=== PATIENT | male | born 1945 | race Caucasian/White ===

== ENCOUNTER 2020-09-23 11:03 | Inpatient (IN) | payer MEDICARE, OTHER ==
[~2020-09-23] VITALS: Ht 167.6 cm; Wt 89.3 kg
[~2020-09-23 11:03] MED LIST: Augmentin PO; CINNAMON; CINNAMON PO; FISH1000 PO; HCTZ25TA PO; INSUH10VL INJ; INSULANT SC; LOPR50TA PO; LOSA50TA20 PO; METF1000 PO; OXYC1TAB23 PO; SIMV20TA2 PO
--- NOTE | 2020-09-23 11:30 | REP ---
INDICATION: CHEST PAIN. COMPARISON: 09/12/2010. TECHNIQUE: SINGLE PORTABLE AP VIEW OF THE CHEST WAS PERFORMED. FINDINGS: There are mild bibasilar fibro atelectatic changes without evidence of acute infiltrate. The heart is upper limits of normal in size. The mediastinal silhouette is unremarkable and unchanged. IMPRESSION: NO ACUTE PULMONARY DISEASE. <Electronically signed by Riccardo Bone > 09/23/20 1127
[2020-09-23 11:51] LABS: BASO # 0.1 10^3/uL (0.0-0.2); BASO % 0.5 % (0.0-1.0); EOS # 0.7 10^3/uL (0.0-0.5); EOS % 7.6 % (0.0-3.0); HEMATOCRIT 45.9 % (42.0-52.0); HEMOGLOBIN 14.9 g/dl (13.5-17.5); LYMPH # 1.1 10^3/uL (1.5-5.0); LYMPH % 11.8 % (24.0-44.0); MEAN CORPUSCULAR HEMOGLOBIN 29.7 pg (27.0-33.0); MEAN CORPUSCULAR HGB CONC 32.5 g/dl (32.0-36.5); MEAN CORPUSCULAR VOLUME 91.6 fl (80.0-96.0); MONO # 0.8 10^3/uL (0.0-0.8); MONO % 8.2 % (2.0-8.0); NEUTROPHILS # 6.8 10^3/uL (1.5-8.5); NEUTROPHILS % 71.6 % (36.0-66.0); PLATELET COUNT, AUTOMATED 282 10^3/uL (150-450); RED BLOOD COUNT 5.01 10^6/uL (4.30-6.10); WHITE BLOOD COUNT 9.4 10^3/uL (4.0-10.0)
[2020-09-23 12:00] LABS: INR 0.95; PROTHROMBIN TIME 12.9 SECONDS (12.5-14.3)
[2020-09-23 12:01] LABS: PARTIAL THROMBOPLASTIN TIME 28.3 SECONDS (24.2-38.5)
[2020-09-23 12:22] LABS: ALBUMIN 3.7 GM/DL (3.2-5.2); ALT/SGPT 31 U/L (12-78); BILIRUBIN,DIRECT 0.2 MG/DL (0.0-0.2); BILIRUBIN,TOTAL 0.6 MG/DL (0.2-1.0); BLOOD UREA NITROGEN 14 MG/DL (7-18); CALCIUM LEVEL 9.2 MG/DL (8.8-10.2); CARBON DIOXIDE LEVEL 30 MEQ/L (21-32); CHLORIDE LEVEL 103 MEQ/L (98-107); CK-MB VALUE MASS 1.1 NG/ML (<3.6); CPK CREATINE PHOSPHOKINASE 82 U/L (39-308); CREATININE FOR GFR 1.16 MG/DL (0.70-1.30); FREE T4 1.11 NG/DL (0.76-1.46); GLOMERULAR FILTRATION RATE > 60.0 (>42); GLUCOSE, FASTING 134 MG/DL (70-100); LIPASE 67 U/L (73-393); MB/CK RELATIVE INDEX 1.34 (< OR =4); POTASSIUM SERUM 4.1 MEQ/L (3.5-5.1); SODIUM LEVEL 137 MEQ/L (136-145); TOTAL PROTEIN 7.3 GM/DL (6.4-8.2); TROPONIN I 0.14 NG/ML (< 0.10)
[2020-09-23] MEDS ORDERED: ASPIRIN 325 MG TAB PO ONE (12:35)
[2020-09-23 13:32] LABS: CK-MB VALUE MASS 1.2 NG/ML (<3.6); MB/CK RELATIVE INDEX 1.52 (< OR =4); TROPONIN I 0.15 NG/ML (< 0.10)
[2020-09-23 13:35] LABS: RSV AMPLIFICATION NEGATIVE (NEGATIVE)
[2020-09-23] MEDS ORDERED: GLUCAGON INJ 1MG VIAL SC PRN (14:45)
[2020-09-23] MEDS ORDERED: DEXTROSE 50% 50 ML SYRINGE IV PRN (14:45)
[2020-09-23] MEDS ORDERED: GLUCOSE 4GM CHEW TABLET PO PRN (14:45)
[2020-09-23] MEDS ORDERED: ACETAMINOPHEN TAB 650MG DOSE (2X325MG) PO PRN (14:45)
--- NOTE | 2020-09-23 15:06 | HPEPDOC ---
General Date of Admission 09/23/20 Date of Service: Sep 23, 2020 Chief Complaint The patient is a 75-year-old male admitted with a reason for visit of Chest Pain. Source: Patient Exam Limitations: No limitations History of Present Illness Patient is 75 years old male with past history of hypertension, history of prostate cancer status post prostatectomy, hyperlipidemia, type 2 diabetes presenting to the hospital with chest pain. Patient stated that in the morning around 5 aM he woke up with substernal chest pain, 4 out of 10, radiated to the left shoulder and arm, lasted 1 hour and then completely resolved. Patient stated that he never had such symptoms before. Patient denied fever, chills, nausea, vomiting diarrhea or dysuria. In ER patient was found to have no acute ischemic changes on the EKG, first troponin 0.14, second troponin 0.15. Patient does not have leukocytosis, hemoglobin normal. Chest x-ray negative for acute pulmonary diseases Home Medications Scheduled Cinnamon Bark (Cinnamon) 500 Mg Capsule, 500 MG PO DAILY, (Reported) Cyanocobalamin (Cyanocobalamin Injection) 1,000 Mcg/1 Ml Vial, 500 MCG IM QMONTH, (Reported) Fluticasone Propionate (Flonase Allergy Relief) 9.9 Ml [place].susp, 2 SPRAYS NARES DAILY, (Reported) Insulin Aspart (Novolog Flexpen) 100 Unit/1 Ml Insuln.pen, 1 UNITS SC AC, (Reported) PER SLIDING SCALE Insulin Glargine,Hum.rec.anlog (Lantus Solostar) 100 Unit/1 Ml Insuln.pen, 45 UNITS SC QHS, (Reported) Insulin Glargine,Hum.rec.anlog (Lantus Solostar) 100 Unit/1 Ml Insuln.pen, 20 UNITS SC QAM, (Reported) Krill/Om-3/Dha/Epa/Phospho/Ast (Krill Oil 1,000 mg Softgel) 1 Each Capsule, 1 CAP PO DAILY, (Reported) Latanoprost (Xalatan) 0.005% 2.5ML Drops, 1 DROP OU QHS, (Reported) Losartan Potassium (Losartan Potassium) 50 Mg Tablet, 50 MG PO BID, (Reported) Metformin HCl (Metformin HCl) 1,000 Mg Tablet, 1,000 MG PO BIDWM, (Reported) Multivitamins (Thera M Plus Tablet) 1 Each Tablet, 1 TAB PO DAILY, (Reported) Pioglitazone HCl (Pioglitazone HCl) 30 Mg Tablet, 15 MG PO DAILY, (Reported) Simvastatin (Simvastatin) 40 Mg Tablet, 20 MG PO QHS, (Reported) Triamterene/Hydrochlorothiazid (Triamterene-Hctz 37.5-25 mg Tb) 1 Each Tablet, 1.5 TAB PO DAILY, (Reported) Trospium Chloride (Trospium Chloride) 20 Mg Tablet, 20 MG PO BID, (Reported) Scheduled PRN Carboxymethylcellulose Sodium (Refresh Tears) 15 Ml Drops, 1 DROP OU BID PRN for DRY EYES, (Reported) Allergies Coded Allergies: No Known Allergies (Unverified , 09/26/12) Past Medical History Medical History hypertension, history of prostate cancer status post prostatectomy, hyperlipidemia, type 2 diabetes, exposed to agent orange Surgical History Radical prostatectomy due to prostate cancer Family History 2 brothers has coronary artery diseases, mother diabetes, father Alzheimer Social History * Smoker: former Smoker Alcohol: Denies Drugs: denies A-FIB/CHADSVASC A-FIB History Current/History of A-Fib/PAF?: No Current PO Anticoag Therapy: No Review of Systems Constitutional: Denies: Chills, Fever Eyes: Denies: Pain ENT: Denies: Head Aches Skin: Denies: Rash, Lesions Pulmonary: Denies: Dyspnea Cardiovascular: Reports: Chest Pain; Denies: Palpitations Gastrointestinal: Denies: Nausea, Vomiting Genitourinary: Denies: Dysuria Hematologic: Denies: Bruising Endocrine: Denies: Polydipsia Musculoskeletal: Denies: Neck Pain Neurological: Denies: Weakness Psych: Reports: Mood Normal Physical Examination General Exam: Positive: Alert, Cooperative Eye Exam: Positive: PERRLA ENT Exam: Positive: Atraumatic Neck Exam: Negative: JVD Chest Exam: Positive: Clear to auscultation Heart Exam: Positive: Rate Normal Telemetry: Positive: No significant arrhythmia Abdomen Exam: Positive: Normal bowel sounds Extremity Exam: Negative: Clubbing Skin Exam: Positive: Nl turgor and temperature Neuro Exam: Positive: Normal Gait Psych Exam: Positive: Mental status NL Vital Signs Vital Signs Date Time Temp Pulse Resp B/P (MAP) Pulse Ox O2 Delivery O2 Flow Rate FiO2 09/23/20 13:48 84 92 09/23/20 13:45 18 193/77 (115) Room Air 09/23/20 11:04 98.1 Laboratory Data Labs 24H Laboratory Tests 2 09/23/20 11:31: Immature Granulocyte % (Auto) 0.3, Neutrophils (%) (Auto) 71.6H, Lymphocytes (%) (Auto) 11.8L, Monocytes (%) (Auto) 8.2H, Eosinophils (%) (Auto) 7.6H, Basophils (%) (Auto) 0.5, Neutrophils # (Auto) 6.8, Lymphocytes # (Auto) 1.1L, Monocytes # (Auto) 0.8, Eosinophils # (Auto) 0.7H, Basophils # (Auto) 0.1, Nucleated Red Blood Cells % (auto) 0.0, Prothrombin Time 12.9, Prothromb Time International Ratio 0.95, Activated Partial Thromboplast Time 28.3, Anion Gap 4L, Glomerular Filtration Rate > 60.0, Calcium Level 9.2, Total Bilirubin 0.6, Direct Bilirubin 0.2, Aspartate Amino Transf (AST/SGOT) 19, Alanine Aminotransferase (ALT/SGPT) 31, Alkaline Phosphatase 97, Total Creatine Kinase 82, Creatine Kinase MB 1.1, Creatine Kinase MB Relative Index 1.34, Troponin I 0.14H, Total Protein 7.3, Albumin 3.7, Albumin/Globulin Ratio 1.0, Lipase 67L, Thyroid Stimulating Hormone (TSH) 1.110, Free Thyroxine 1.11 09/23/20 12:45: Total Creatine Kinase 79, Creatine Kinase MB 1.2, Creatine Kinase MB Relative Index 1.52, Troponin I 0.15H, Coronavirus (COVID-19)(PCR) NEGATIVE, Influenza Type A (RT-PCR) NEGATIVE, Influenza Type B (RT-PCR) NEGATIVE, Respiratory Syncytial Virus (PCR) NEGATIVE CBC/BMP Laboratory Tests 09/23/20 11:31 Assessment/Plan Patient is 75 years old male with past history of hypertension, history of prostate cancer status post prostatectomy, hyperlipidemia, type 2 diabetes presenting to the hospital with chest pain. Patient stated that in the morning around 5 aM he woke up with substernal chest pain, 4 out of 10, radiated to the left shoulder and arm, lasted 1 hour and then completely resolved. Patient stated that he never had such symptoms before. Patient denied fever, chills, nausea, vomiting diarrhea or dysuria. In ER patient was found to have no acute ischemic changes on the EKG, first troponin 0.14, second troponin 0.15. Patient does not have leukocytosis, hemoglobin normal. Chest x-ray negative for acute pulmonary diseases Problems (1) Chest pain Status: Acute Problem Text: Differential diagnosis includes demand ischemia, acute coronary syndrome, NSTEMI Patient has multiple risk factors including hypertension, hyperlipidemia, overweight, history of smoking Chest pain resolved when I saw the patient PURVI score 3 points I talked doctor Dr. Rodriguez, he recommended to continue monitoring troponin, echo and start full dose of anticoagulation I started the metoprolol 25 mg twice a day, continue statin, aspirin (2) Hypertension Status: Acute Problem Text: Hypertensive urgency with systolic blood pressure of 195 Patient is symptom management Norvasc 10 mg once, started metoprolol 25 mg twice a day (3) Hyperlipidemia Status: Chronic Problem Text: Continue statin (4) Type 2 diabetes mellitus Status: Chronic Problem Text: Insulin sliding scale Detemir twice a day Diabetes diet Plan / VTE VTE Prophylaxis Ordered?: Yes PORTILLO MONIQUE DO Sep 23, 2020 15:06
[2020-09-23] MEDS ORDERED: CYAN1000VL IM (15:09)
[2020-09-23] MEDS ORDERED: TROS20TA3 PO (15:09)
[2020-09-23] MEDS ORDERED: FLON1SPR NARES (15:09)
[2020-09-23] MEDS ORDERED: REFR0.5D8 OU (15:09)
[2020-09-23] MEDS ORDERED: METF-877 PO (15:09)
[2020-09-23] MEDS ORDERED: KRIL1CAP7 PO (15:09)
[2020-09-23] MEDS ORDERED: TRIA37.5 PO (15:09)
[2020-09-23] MEDS ORDERED: LANTINJ4 SC ×2 (15:09)
[2020-09-23] MEDS ORDERED: XALA0.007 OU (15:09)
[2020-09-23] MEDS ORDERED: VITMTA PO (15:09)
[2020-09-23] MEDS ORDERED: PIOG1TAB37 PO (15:09)
[2020-09-23] MEDS ORDERED: LOSA50TA88 PO (15:09)
[2020-09-23] MEDS ORDERED: SIMV40TA20 PO (15:09)
[2020-09-23] MEDS ORDERED: NOVOINJ3 SC (15:09)
[2020-09-23] MEDS ORDERED: CINN500C15 PO (15:09)
[2020-09-23] MEDS ORDERED: METOPROLOL TART 25 MG TABLET PO ONE (15:15)
[2020-09-23] MEDS: PANTOPRAZOLE 40MG TAB (PROTONIX) PO SCH (16:00)
[2020-09-23] MEDS: HumaLOG INSULIN (NovoLOG) PER UNIT SC SCH (17:30)
[2020-09-23 17:35] VITALS: BP 152/79
[2020-09-23] MEDS ORDERED: SIMVASTATIN 20 MG TAB PO SCH (21:00)
[2020-09-23] MEDS ORDERED: HumaLOG INSULIN (NovoLOG) PER UNIT SC SCH (21:00)
[2020-09-23] MEDS ORDERED: LATANOPROST 0.005% OPHTH SOLN 2.5 ML OU SCH (21:00)
[2020-09-23] MEDS: ENOXAPARIN 100MG/1ML SYRINGE (J1650 PER 10MG) SC SCH (21:13)
[2020-09-23] MEDS: LEVEMIR (INSULIN DETEMIR) 1 UNITS/0.01ML SC SCH (21:14)
[2020-09-23] MEDS: METOPROLOL TART 25 MG TABLET PO SCH (21:14)
[2020-09-23] MEDS: LOSARTAN 50MG TABLET PO SCH (21:15)
[2020-09-23 22:00] VITALS: BP 136/65
--- NOTE | 2020-09-24 02:38 | ECGEPIP ---
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
[2020-09-24 06:00] VITALS: BP 154/81
[2020-09-24 06:51] LABS: HEMOGLOBIN 14.1 g/dl (13.5-17.5); MEAN CORPUSCULAR HEMOGLOBIN 29.1 pg (27.0-33.0); MEAN CORPUSCULAR VOLUME 90.7 fl (80.0-96.0); PLATELET COUNT, AUTOMATED 258 10^3/uL (150-450); RED BLOOD COUNT 4.85 10^6/uL (4.30-6.10); WHITE BLOOD COUNT 8.8 10^3/uL (4.0-10.0)
[2020-09-24 07:30] LABS: ALBUMIN 3.4 GM/DL (3.2-5.2); ALT/SGPT 28 U/L (12-78); BILIRUBIN,TOTAL 0.9 MG/DL (0.2-1.0); BLOOD UREA NITROGEN 14 MG/DL (7-18); CALCIUM LEVEL 9.6 MG/DL (8.8-10.2); CARBON DIOXIDE LEVEL 32 MEQ/L (21-32); CHLORIDE LEVEL 102 MEQ/L (98-107); CHOLESTEROL LEVEL 137 MG/DL (<200); CHOLESTEROL RISK RATIO 3.702 (<5); CREATININE FOR GFR 1.11 MG/DL (0.70-1.30); GLOMERULAR FILTRATION RATE > 60.0 (>42); GLUCOSE, FASTING 137 MG/DL (70-100); HDL CHOLESTEROL 37 MG/DL (>40); LDL CHOLESTEROL 59 MG/DL (<100); MAGNESIUM LEVEL 1.9 MG/DL (1.8-2.4); NON-HDL-C 100 MG/DL; POTASSIUM SERUM 3.8 MEQ/L (3.5-5.1); SODIUM LEVEL 138 MEQ/L (136-145); TOTAL PROTEIN 6.7 GM/DL (6.4-8.2); TRIGLYCERIDES LEVEL 205 MG/DL (<150)
[2020-09-24] MEDS: ENOXAPARIN 100MG/1ML SYRINGE (J1650 PER 10MG) SC SCH (08:44)
[2020-09-24] MEDS: LEVEMIR (INSULIN DETEMIR) 1 UNITS/0.01ML SC SCH (08:45)
[2020-09-24] MEDS: HumaLOG INSULIN (NovoLOG) PER UNIT SC SCH (08:45)
[2020-09-24 08:46] VITALS: BP 159/74
[2020-09-24] MEDS: LOSARTAN 50MG TABLET PO SCH (08:46)
[2020-09-24] MEDS: METOPROLOL TART 25 MG TABLET PO SCH (08:46)
[2020-09-24] MEDS: PANTOPRAZOLE 40MG TAB (PROTONIX) PO SCH (08:46)
[2020-09-24] MEDS ORDERED: METO1TAB87 PO (08:59)
[2020-09-24] MEDS ORDERED: PANT40TA29 PO (08:59)
[2020-09-24] MEDS ORDERED: ASPI81CH8 PO (08:59)
[2020-09-24] MEDS ORDERED: ENOXAPARIN 40MG/0.4ML SYRINGE (J1650 PER 10MG) SC SCH (09:00)
[2020-09-24] MEDS ORDERED: ASPIRIN 81 MG CHEW TABLET PO SCH (09:00)
--- NOTE | 2020-09-24 11:31 | IPN ---
PROGRESS NOTE DATE: 09/23/2020 SUBJECTIVE: Mr. Morrow was seen and examined this morning. Overnight he has not reported any further chest pain. His elevated troponins have leveled out around 0.18. On further questioning this morning, the patient's story and symptomatology is fairly consistent with ACS. The patient has stated this morning that he would be okay with undergoing heart catheterization as well as he would consider open heart surgery if it was indicated. A decision was made that the patient should be transferred to [facility] cardiology for heart catheterization. OBJECTIVE: Vital signs: Temperature is 98.0, pulse 78, respiratory rate 20, blood pressure 154/81, pulse oximetry 96% on room air. General: The patient is awake, alert and oriented. He did not appear in acute distress. He is lying in bed comfortably. HEENT: Atraumatic. Normocephalic. Eyes: Nonicteric. Trachea is midline. Mucous membranes are pink and moist. Cardiovascular: There are somewhat distant hearts. There is normal S1, S2. Regular rate and rhythm. No clicks, rubs or murmurs are auscultated. There is no JVD. Pulmonary: There are clear vesicular breath sounds bilaterally, good respiratory effort. No wheezes, rhonchi or rales. Abdomen: Soft, nondistended, nontender, normoactive bowel sounds throughout. Extremities: No edema. Full and equal pulses bilaterally of upper and lower extremities. Neurologic: No focal neurological deficits. Psychiatric: Mood and affect appear appropriate. LABORATORY DATA: Hematology: White blood cell 8.8, hemoglobin 14.1, hematocrit 44, platelet count 258. Chemistries: Sodium 138, potassium 3.8, chloride 102, CO2 32, creatinine 1.11. Random glucose 137, calcium 9.6, magnesium 1.9, total bilirubin 0.9. AST 23, ALT 28, alkaline phosphatase 86. Troponin on admission 0.15, repeat 0.18. ASSESSMENT AND PLAN: Mr. Morrow is a 75-year-old male with a past medical history significant for longstanding diabetes mellitus, type 2, uncontrolled hypertension and history of smoking who presented to the emergency department with an episode of chest pain/pressure that lasted approximately 15 minutes. The patient had indicated that previous to this, he has had on and off chest pressure typically with exertion. The patient was admitted to hospitalist service. Cardiology is consulted for evaluation of the elevated troponin. 1. Chest pain/possible ACS. The patient had presented with chest pain/pressure that lasted approximately 15 minutes. It was associated with some diaphoresis and some shortness of breath. The patient had indicated that this has been going on for approximately two months on and off. He does a history that certainly raised a risk for acute coronary syndrome including diabetes mellitus type 2 which is longstanding. His most recent A1c according to him was 7.1. Additionally he has uncontrolled hypertension. He is currently on Losartan and Dyazide outpatient. However, he states that his blood pressure typically runs between the 160s and 170s on these medications. He also had a history of hyperlipidemia and is a former smoker. Given the patient's symptomatology and medical history, his PURVI risk score is certainly elevated at 4. He would benefit from transfer to [facility] for cardiac catheterization. At this time, we would recommend continuing his aspirin. He is currently on Lovenox 90 mg every 12 hours. We would recommend continuing this as well. [facility] has been contacted and they are going to accept the patient. Dr. Mcdonough is the accepting physician/interventionalist. At this time, we will hold off on getting any Plavix. He will be Plavix loaded when he arrives at [facility]. Otherwise, continue his current medications including metoprolol 25 mg b.i.d. 2. Hypertension. The patient has uncontrolled hypertension. He states he has been on Cozaar and Dyazide. However, his systolic blood pressure is running approximately in the 170s. Yesterday in the ER, his systolic blood pressure was upwards of 200. We have added metoprolol 25 mg b.i.d. yesterday. We will start Norvasc daily schedule. The patient should follow up with his primary care physician in regards to better blood pressure control with an AHA/ACC guidelines goal of approximately less than 130 or less than 90. 3. Diabetes mellitus type 2. The patient has diabetes mellitus type 2. He takes insulin and pioglitazone. Given possible ACS, he should consider additional medications such as GLP-1 agonist and SGLT2 inhibitors as they have shown decreased mortality and morbidity in diabetics in terms of heart disease. 4. Hyperlipidemia. The patient is currently on simvastatin 20 mg q.h.s. This is moderate intensity statin. He ideally should be increased to a high intensity statin such as atorvastatin and rosuvastatin. RECOMMENDATIONS: At this current time, the patient is recommended to continue his metoprolol 25 mg b.i.d., aspirin and Lovenox. He is going to be transferred to [facility] for cardiac catheterization. He can follow up with cardiology clinic after his catheterization. Regarding his hypertension, he is to continue this previous hypertensive medication including Cozaar and Dyazide. We have added Norvasc as well as Lopressor.
--- NOTE | 2020-09-24 14:23 | CR ---
CARDIOLOGY CONSULTATION DATE: 09/23/2020 REFERRING PHYSICIAN: Rhett Ball DO CONSULTING PHYSICIAN: Stephani Rodriguez MD REASON FOR CONSULTATION: Chest pain with elevated troponin. HISTORY OF PRESENT ILLNESS: Mr. Morrow is a 75-year-old male with a past medical history significant for hypertension, diabetes mellitus type 2, hyperlipidemia and prostate cancer, status post radical prostatectomy who had presented to [facility] emergency department with a complaint of chest pain. The patient states that this morning, he had woken up approximately around 5 a.m. with chest pain that was described as more of a pressure than a pain. He stated that it felt like there was something pushing on his chest. He stated this sensation did radiate to his left shoulder. He had stated that the sensation lasted approximately 15-20 minutes then had resolved. At the time, the patient did note some shortness of breath. He stated the shortness of breath did not last15 minutes, it was more a minute or so. He states that this chest pressure/pain was more significant than he has ever experienced. He does state that he has had on and off symptoms similar to this although less in severity over the past couple months. He stated that normally this is associated with exertion. He states that when he walks, he will often get a pressure feeling in his chest. In the emergency department, the patient was vitally stable though he was fairly hypertensive with a systolic blood pressure of 175 and a diastolic 85. Initial laboratory examination did demonstrate a slightly elevated troponin level of 0.14 and then repeat in an hour was approximately 0.15. The patient was admitted to hospitalist medicine for evaluation and management. Cardiology was consulted for further evaluation of the elevated troponins in light of chest pain and evaluation for possible NSTEMI. PAST MEDICAL HISTORY: 1. Hypertension. 2. Type 2 diabetes mellitus. 3. Hyperlipidemia. 4. History of prostate cancer with status post radical prostatectomy. 5. Exposure ot Agent [place]. SURGICAL HISTORY: 1. Radical prostatectomy. 2. Appendectomy. FAMILY HISTORY: The patient has two brothers, both of which had a history of coronary artery disease and have had open heart surgeries. His mother is alive with diabetes. His father has Alzheimer's disease. SOCIAL HISTORY: The patient lives at home alone. He is independent of ADLs. He is a former smoker. He quit smoking around the year 1999. At the time, he was smoking approximately one pack per day. He does have a history of exposure to Agent [place] as he is a . He denies any current alcohol use. He denies any IV or illicit drug use. REVIEW OF SYSTEMS: Constitutional: The patient denies any fevers, chills. He denies any unintentional weight loss or weight gain. HEENT: The patient denies any headaches. He denies any dysphagia or odynophagia. Pulmonary: The patient denies any current shortness of breath. He states that he had developed shortness of breath and the episode of chest pain early his morning but currently he denies any wheezing. Cardiovascular: The patient admits to chest pain earlier, describes the pressure feeling. He denies any current chest pain. He denies any palpations or feelings of heart racing. Gastrointestinal: The patient denies any nauseam, vomiting, diarrhea or constipation. Genitourinary: The patient denies any dysuria, urinary frequency or urgency. He denies any hematuria. Musculoskeletal: The patient denies any neck pain or back pain. He denies any muscle weakness. Neurologic: The patient denies any weakness. He denies any changes in gait or speech. He denies any change in vision. Hematologic: The patient denies any easy bleeding or bruising. He denies any history of DVT or pulmonary embolism. Endocrine: The patient denies any heat intolerance or cold intolerance. He does admit to history of diabetes mellitus. Psychiatric: The patient denied any history of depression or anxiety. PHYSICAL EXAMINATION: VITAL SIGNS: Temperature 97.8, pulse 88, respiratory rate 18, blood pressure 189/84, pulse oximetry 94% on room air. GENERAL: The patient is awake, alert and oriented. He does not appear in any acute distress. He is lying in a stretcher comfortably. HEENT: Atraumatic, normocephalic. Eyes are nonicteric. Trachea is midline. Mucous membranes are pink and moist. CARDIOVASCULAR: There is a normal S-1, S-2. There is a regular rate and rhythm with no clicks, rubs or murmurs auscultated. There is no JVD present. PULMONARY: He has clear vesicular breath sounds bilaterally. Good respiratory effort. No wheezes, rhonchi or rales are noted. ABDOMEN: Soft, nondistended, nontender, normoactive bowel sounds throughout. EXTREMITIES: No edema in bilateral upper and lower extremities. There is a full equal pulse, bilateral upper and lower extremities. NEUROLOGIC: No focal neurological deficits. PSYCHIATRIC: Mood and affect appear appropriate. INPATIENT CARDIAC MEDICATIONS: 1. Aspirin 81 mg daily p.o. 2. Lopressor 25 mg b.i.d. p.o. 3. Simvastatin 20 mg q.h.s. p.o. 4. Losartan potassium 50 mg b.i.d. p.o. 5. Lovenox 90 mg q.12 hours subcutaneous. LABORATORY DATA: Hematology: White blood cells 9.4, hemoglobin 14.9, hematocrit 45.9, platelet count 282. Chemistries: Sodium 137, potassium 4.1, chloride 103, CO2 30, BUN 14, creatinine 1.16, fasting glucose 134, calcium 9.2, total bilirubin 0.6, direct bilirubin 0.2, AST 19, ALT 31, alkaline phosphatase 97, total creatine kinase 82. Troponin 0.14, repeat at 0.15. IMAGING: Chest x-ray demonstrating no acute pulmonary disease. ASSESSMENT AND PLAN: Mr. Morrow is a 75-year-old male who presented to the [facility] emergency department with a complaint of chest pain/pressure that started about 5 a.m. and lasted approximately 15-20 minutes. The patient had also admitted to several episodes of similar symptomatology over the past few months. In the ER, the patient was found to have no acute ischemic changes on EKG but a elevated troponin of 0.14 and 0.15. The patient was admitted for evaluation and management by hospitalist medicine. Cardiology was consulted for further evaluation. 1. Chest pain with elevated troponins. The patient presented with chest pain and pressure which was described as lasting approximately 15-20 minutes and then subsiding. The patient states that he has had similar symptoms on and off for the past couple months typically associated with exertion. Given his symptomatology and history, it certainly is concerning for ACS. Additionally, there are no EKG changes readily which could suggest an NSTEMI. He certainly has the risk factors with the PURVI score of 4 completing a 20% risk, 14 days of RI. He does have history of diabetes mellitus type 2. His most recent A1c was 7.1 per the patient. At this point in time, the patient is currently being monitored. Additionally he was noted to be fairly hypertensive. This could be secondary to a hypertensive urgency. We will continue to monitor his troponins. The next one is due around 5:45/6 o'clock tonight. An echocardiogram has been ordered by the primary service. Additionally, the patient has been started on Lovenox 90 mg every 12 hours which will be continued for at least three days if this is truly NSTEMI. Additionally, the patient has been started on metoprolol 25 mg b.i.d. He is on simvastatin 20 mg q.h.s. which is a moderate intensity statin, could be changed to atorvastatin 80 mg. Additionally, the patient is on aspirin 81 mg daily p.o. l would recommend continuing this current regimen. We will continue to monitor troponins. If they continue to elevate, may have to consider transfer to [facility] for cardiac catheterization. 2. Hypertension. The patient noted to be fairly hypertensive on presentation, systolic blood pressure 175. On evaluation in the room, it upwards of 200 systolic blood pressure. He is rather asymptomatic. However, this could be a hypertensive urgency. He did receive Norvasc in the ED. He has also been started on metoprolol 25 mg b.i.d. 3. Diabetes mellitus type 2. The patient has diabetes mellitus. This is somewhat well controlled. His hemoglobin A1c is 7.1. His outpatient medications indicate that he is on metformin as well as pioglitazone insulin. The patient should consider speaking with his primary care physician about other potential diabetic medications such as SGLT2 inhibitors and GLP-1 agonist as these have shown mortality benefit in regards to coronary artery disease in diabetics. RECOMMENDATIONS: At this current time, I will recommend continuing to monitor troponins. Echocardiogram has been ordered. Continue with full dose Lovenox at 90 mg q.12 hours subcutaneous. Continue metoprolol 25 mg b.i.d. Continue patient's statin and aspirin.
--- NOTE | 2020-09-25 17:11 | DS.PDOC ---
Discharge Summary General Date of Admission Sep 23, 2020 at 14:41 Date of Discharge 09/24/20 Discharge Summary PROCEDURES PERFORMED DURING STAY: [None]. ADMITTING DIAGNOSES: Chest pain Hypertension Hyperlipidemia Type 2 diabetes mellitus DISCHARGE DIAGNOSES: Chest pain Hypertension Hyperlipidemia Type 2 diabetes mellitus NSTEMI COMPLICATIONS/CHIEF COMPLAINT: Chest Pain, Hypertension. HISTORY OF PRESENT ILLNESS: Patient is 75 years old male with past history of hypertension, history of prostate cancer status post prostatectomy, hyperlipidem ia, type 2 diabetes presenting to the hospital with chest pain. Patient stated that in the morning around 5 aM he woke up with substernal chest pain, 4 out of 10, radiated to the left shoulder and arm, lasted 1 hour and then completely resolved. Patient stated that he never had such symptoms before. Patient denied fever, chills, nausea, vomiting diarrhea or dysuria. In ER patient was found to have no acute ischemic changes on the EKG, first troponin 0.14, second troponin 0.15. Patient does not have leukocytosis, hemoglobin normal. Chest x-ray negative for acute pulmonary diseases HOSPITAL COURSE: During the hospital stay following issues addressed 1. Chest pain/possible ACS. The patient had presented with chest pain/pressure that lasted approximately 15 minutes. It was associated with some diaphoresis and some shortness of breath. The patient had indicated that this has been going on for approximately two months on and off. He does a history that certainly raised a risk for acute coronary syndrome including diabetes mellitus type 2 which is longstanding. His most recent A1c according to him was 7.1. Additionally he has uncontrolled hypertension. He is currently on Losartan and Dyazide outpatient. However, he states that his blood pressure typically runs between the 160s and 170s on these medications. He also had a history of hyperlipidemia and is a former smoker. Given the patient's symptomatology and medical history, his PURVI risk score is certainly elevated at 4. He would benefit from transfer to [facility] for cardiac catheterization. At this time, we would recommend continuing his aspirin. He is currently on Lovenox 90 mg every 12 hours. We would recommend continuing this as well. [facility] has been contacted and they are going to accept the patient. Dr. Mcdonough is the accepting physician/interventionalist. At this time, we will hold off on getting any Plavix. He will be Plavix loaded when he arrives at [facility]. Otherwise, continue his current medications including metoprolol 25 mg b.i.d. 2. Hypertension. The patient has uncontrolled hypertension. He states he has been on Cozaar and Dyazide. However, his systolic blood pressure is running approximately in the 170s. Yesterday in the ER, his systolic blood pressure was upwards of 200. We have added metoprolol 25 mg b.i.d. yesterday. We will start Norvasc daily schedule. The patient should follow up with his primary care physician in regards to better blood pressure control with an AHA/ACC guidelines goal of approximately less than 130 or less than 90. 3. Diabetes mellitus type 2. The patient has diabetes mellitus type 2. He takes insulin and pioglitazone. Given possible ACS, he should consider additional medications such as GLP-1 agonist and SGLT2 inhibitors as they have shown decreased mortality and morbidity in diabetics in terms of heart disease. 4. Hyperlipidemia. The patient is currently on simvastatin 20 mg q.h.s. This is moderate intensity statin. He ideally should be increased to a high intensity statin such as atorvastatin and rosuvastatin. DISCHARGE MEDICATIONS: Please see below. ALLERGIES: Please see below. PHYSICAL EXAMINATION ON DISCHARGE: VITAL SIGNS: Please see below. Vital signs: Temperature is 98.0, pulse 78, respiratory rate 20, blood pressure 154/81, pulse oximetry 96% on room air. General: The patient is awake, alert and oriented. He did not appear in acute distress. He is lying in bed comfortably. HEENT: Atraumatic. Normocephalic. Eyes: Nonicteric. Trachea is midline. Mucous membranes are pink and moist. Cardiovascular: There are somewhat distant hearts. There is normal S1, S2. Regular rate and rhythm. No clicks, rubs or murmurs are auscultated. There is no JVD. Pulmonary: There are clear vesicular breath sounds bilaterally, good respiratory effort. No wheezes, rhonchi or rales. Abdomen: Soft, nondistended, nontender, normoactive bowel sounds throughout. Extremities: No edema. Full and equal pulses bilaterally of upper and lower extremities. Neurologic: No focal neurological deficits. Psychiatric: Mood and affect appear appropriate. LABORATORY DATA: Please see below. IMAGING: See above PROGNOSIS: Fair ACTIVITY: [As tolerated]. DIET: Cardiac DISCHARGE PLAN: Transfer to [facility] DISPOSITION: 70 Xfer Other. ITEMS TO FOLLOWUP ON ON OUTPATIENT: Follow-up with transcriptionist after discharge DISCHARGE CONDITION: [Stable]. TIME SPENT ON DISCHARGE: 40minutes. Vital Signs/I&Os Vital Signs Date Time Temp Pulse Resp B/P (MAP) Pulse Ox O2 Delivery O2 Flow Rate FiO2 09/24/20 08:46 91 159/74 09/24/20 06:00 98.0 20 96 09/23/20 16:45 Room Air I&O- Last 24 Hours up to 6 AM 09/25/20 06:00 Intake Total 240 ml Output Total 400 ml Balance -160 ml Discharge Medications Scheduled Aspirin (Children's Aspirin) 81 Mg Tab.chew, 81 MG PO DAILY Cinnamon Bark (Cinnamon) 500 Mg Capsule, 500 MG PO DAILY, (Reported) Cyanocobalamin (Cyanocobalamin Injection) 1,000 Mcg/1 Ml Vial, 500 MCG IM QMONTH, (Reported) Fluticasone Propionate (Flonase Allergy Relief) 9.9 Ml [place].susp, 2 SPRAYS NARES DAILY, (Reported) Insulin Aspart (Novolog Flexpen) 100 Unit/1 Ml Insuln.pen, 1 UNITS SC AC, (Reported) PER SLIDING SCALE Insulin Glargine,Hum.rec.anlog (Lantus Solostar) 100 Unit/1 Ml Insuln.pen, 45 UNITS SC QHS, (Reported) Insulin Glargine,Hum.rec.anlog (Lantus Solostar) 100 Unit/1 Ml Insuln.pen, 20 UNITS SC QAM, (Reported) Krill/Om-3/Dha/Epa/Phospho/Ast (Krill Oil 1,000 mg Softgel) 1 Each Capsule, 1 CAP PO DAILY, (Reported) Latanoprost (Xalatan) 0.005% 2.5ML Drops, 1 DROP OU QHS, (Reported) Losartan Potassium (Losartan Potassium) 50 Mg Tablet, 50 MG PO BID, (Reported) Metformin HCl (Metformin HCl) 1,000 Mg Tablet, 1,000 MG PO BIDWM, (Reported) Metoprolol Tartrate (Metoprolol Tartrate) 25 Mg Tablet, 25 MG PO BID Multivitamins (Thera M Plus Tablet) 1 Each Tablet, 1 TAB PO DAILY, (Reported) Pantoprazole Sodium (Pantoprazole Sodium) 40 Mg Tablet.dr, 40 MG PO DAILY Pioglitazone HCl (Pioglitazone HCl) 30 Mg Tablet, 15 MG PO DAILY, (Reported) Simvastatin (Simvastatin) 40 Mg Tablet, 20 MG PO QHS, (Reported) Triamterene/Hydrochlorothiazid (Triamterene-Hctz 37.5-25 mg Tb) 1 Each Tablet, 1.5 TAB PO DAILY, (Reported) Trospium Chloride (Trospium Chloride) 20 Mg Tablet, 20 MG PO BID, (Reported) Scheduled PRN Carboxymethylcellulose Sodium (Refresh Tears) 15 Ml Drops, 1 DROP OU BID PRN for DRY EYES, (Reported) Allergies Coded Allergies: No Known Allergies (Unverified , 09/26/12) PORTILLO MONIQUE DO Sep 25, 2020 17:11
== END 2020-09-24 11:28 | disposition short-term general hospital (02) | DRG 282 ==
LOC: M ED 11:03 → M ED INP 14:41 → ENRESERV 15:11 → M MSPAV 17:36
PROVIDERS: ADMIT Internal Medicine; ATTEND Internal Medicine
DX: I21.4 Non-ST elevation (NSTEMI) myocardial infarction (principal); I10 Essential (primary) hypertension; I16.0 Hypertensive urgency; E11.9 Type 2 diabetes mellitus without complications; E78.5 Hyperlipidemia, unspecified; Z85.46 Personal history of malignant neoplasm of prostate; Z79.4 Long term (current) use of insulin; Z79.899 Other long term (current) drug therapy; Z87.891 Personal history of nicotine dependence

== ENCOUNTER → 2022-01-23 | Outpatient (CLI) | payer MEDICARE, OTHER ==
[~2022-01-23] MED LIST changes: +AMLO1TAB24 PO; +ASPI81CH33 PO; +ASPI81CH8 PO; +CINN500C15 PO; +CIPR500S PO; +CYAN1000VL IM; +FLON1SPR NARES; +KRIL1CAP7 PO; +LANTINJ4 SC; +LINE1TAB6 PO; +LOSA50TA28 PO; +METF-877 PO; +METO1TAB87 PO; +METO25TA4 PO; +MIRA1POW3 PO; +NOVOINJ3 SC; +PANT-23 PO; +PANT40TA29 PO; +PIOG1TAB37 PO; +REFR0.5D8 OU; +SIMV40TA20 PO; +TRIA37.5 PO; +TROS20TA3 PO; +VITMTA PO; +XALA0.007 OU; +ZYVO1TAB PO
[2022-01-23 15:44] LABS: HEMATOCRIT 30.7 % (42.0-52.0); HEMOGLOBIN 9.2 g/dl (13.5-17.5); MEAN CORPUSCULAR VOLUME 93.3 fl (80.0-96.0); PLATELET COUNT, AUTOMATED 484 10^3/uL (150-450); RED BLOOD COUNT 3.29 10^6/uL (4.30-6.10); WHITE BLOOD COUNT 10.9 10^3/uL (4.0-10.0)
[2022-01-23 16:46] LABS: ALBUMIN 3.1 GM/DL (3.2-5.2); BILIRUBIN,TOTAL 0.4 MG/DL (0.2-1.0); CALCIUM LEVEL 8.8 MG/DL (8.8-10.2); CREATININE FOR GFR 1.29 MG/DL (0.70-1.30); GLOMERULAR FILTRATION RATE 57.5 (>42); POTASSIUM SERUM 4.3 MEQ/L (3.5-5.1); TOTAL PROTEIN 7.2 GM/DL (6.4-8.2)
== END ==
LOC: M PLALAB 12:31
PROVIDERS: ATTEND Urology
DX: R33.9 Retention of urine, unspecified (principal)

== ENCOUNTER 2022-01-24 08:45 | Inpatient (IN) | payer MEDICARE, OTHER ==
[~2022-01-24] VITALS: Ht 170.2 cm; Wt 75.6 kg
[~2022-01-24 08:45] MED LIST changes: -AMLO1TAB24 PO; -CIPR500S PO; -LINE1TAB6 PO; -MIRA1POW3 PO; -ZYVO1TAB PO
[2022-01-24] MEDS ORDERED: LIDOCAINE 2% 5ML JELLY UROJET TOP ONE (09:20)
[2022-01-24] MEDS ORDERED: METOPROLOL TART 25 MG TABLET PO ONE (10:10)
[2022-01-24 10:17] LABS: BACTERIA, URINE LARGE AMOUNT; RBC, URINE 40-50 /hpf (0-3); SQUAMOUS EPITHELIAL CELL URINE NONE SEEN /hpf (SMALL AMT); WBC, URINE TNTC /hpf (0-3)
[2022-01-24 10:18] LABS: HYALINE CAST, URINE NONE SEEN /lpf (0-1)
[2022-01-24 12:34] LABS: BASO # 0.1 10^3/uL (0.0-0.2); BASO % 0.4 % (0.0-1.0); EOS % 0.1 % (0.0-3.0); HEMATOCRIT 28.8 % (42.0-52.0); LYMPH # 0.4 10^3/uL (1.5-5.0); LYMPH % 2.5 % (24.0-44.0); MEAN CORPUSCULAR HEMOGLOBIN 28.5 pg (27.0-33.0); MEAN CORPUSCULAR HGB CONC 31.3 g/dl (32.0-36.5); MEAN CORPUSCULAR VOLUME 91.1 fl (80.0-96.0); MONO # 0.8 10^3/uL (0.0-0.8); MONO % 4.7 % (2.0-8.0); NEUTROPHILS # 15.3 10^3/uL (1.5-8.5); NEUTROPHILS % 91.6 % (36.0-66.0); PLATELET COUNT, AUTOMATED 427 10^3/uL (150-450); RED BLOOD COUNT 3.16 10^6/uL (4.30-6.10); WHITE BLOOD COUNT 16.7 10^3/uL (4.0-10.0)
[2022-01-24 13:07] LABS: ERYTHROCYTE SEDIMENTATION RATE 89 mm/hr (0-20)
[2022-01-24 13:10] LABS: ALBUMIN 2.9 GM/DL (3.2-5.2); BILIRUBIN,DIRECT 0.2 MG/DL (0.0-0.2); BILIRUBIN,TOTAL 0.5 MG/DL (0.2-1.0); C REACTIVE PROTEIN QUANTITATIV 1.5 MG/DL (0.00-0.30); TOTAL PROTEIN 6.7 GM/DL (6.4-8.2)
[2022-01-24] MEDS ORDERED: TAMSULOSIN 0.4 MG CAP PO ONE (13:20)
[2022-01-24] MEDS ORDERED: NS 1,000 ML IV ONE (13:20)
[2022-01-24] MEDS ORDERED: cefTRIAXone SOD 1 GM in D5W MINI-BAG PLUS 50 ML IV ONE (13:50)
[2022-01-24] MEDS ORDERED: HOME MED LIST COMPLETE! XX SCH (14:20)
[2022-01-24 15:34] LABS: BASO % 0.2 % (0.0-1.0); EOS % 0.1 % (0.0-3.0); HEMOGLOBIN 8.7 g/dl (13.5-17.5); LYMPH # 0.5 10^3/uL (1.5-5.0); LYMPH % 3.4 % (24.0-44.0); MEAN CORPUSCULAR HEMOGLOBIN 28.2 pg (27.0-33.0); MEAN CORPUSCULAR HGB CONC 31.1 g/dl (32.0-36.5); MEAN CORPUSCULAR VOLUME 90.9 fl (80.0-96.0); MONO # 0.9 10^3/uL (0.0-0.8); NEUTROPHILS # 13.4 10^3/uL (1.5-8.5); NEUTROPHILS % 89.8 % (36.0-66.0); PLATELET COUNT, AUTOMATED 406 10^3/uL (150-450); RED BLOOD COUNT 3.08 10^6/uL (4.30-6.10); WHITE BLOOD COUNT 14.9 10^3/uL (4.0-10.0)
[2022-01-24] MEDS ORDERED: ACETAMINOPHEN TAB 650MG DOSE (2X325MG) PO PRN (16:40)
[2022-01-24] MEDS ORDERED: DEXTROSE 50% 50 ML SYRINGE IV PRN (16:45)
[2022-01-24] MEDS ORDERED: GLUCOSE 4GM CHEW TABLET PO PRN (16:45)
[2022-01-24] MEDS ORDERED: GLUCAGON INJ 1MG VIAL SC PRN (16:45)
[2022-01-24] MEDS: INSULIN LISPRO (NovoLOG) PER UNIT SC SCH ×2 (17:30→20:25)
[2022-01-24] MEDS ORDERED: INSULIN LISPRO (NovoLOG) PER UNIT SC SCH (17:30)
[2022-01-24] MEDS ORDERED: **hydrALAZINE HCL** 25 MG TAB PO PRN (18:05)
[2022-01-24 19:45] VITALS: BP 149/71
[2022-01-24] MEDS: SIMVASTATIN 40 MG TAB PO SCH (20:47)
[2022-01-24] MEDS: NS 1,000 ML IV SCH (20:47)
[2022-01-24] MEDS: METOPROLOL TART 25 MG TABLET PO SCH (20:49)
[2022-01-24] MEDS: LATANOPROST 0.005% OPHTH SOLN 2.5 ML OU SCH (20:49)
[2022-01-24] MEDS ORDERED: LEVEMIR (INSULIN DETEMIR) 1 UNITS/0.01ML SC SCH (21:00)
[2022-01-24 22:18] LABS: HEMATOCRIT 25.8 % (42.0-52.0); MEAN CORPUSCULAR HEMOGLOBIN 28.4 pg (27.0-33.0); MEAN CORPUSCULAR VOLUME 91.5 fl (80.0-96.0); PLATELET COUNT, AUTOMATED 363 10^3/uL (150-450); RED BLOOD COUNT 2.82 10^6/uL (4.30-6.10); WHITE BLOOD COUNT 12.7 10^3/uL (4.0-10.0)
[2022-01-25] MEDS: NS 1,000 ML IV SCH (02:48)
[2022-01-25 05:29] VITALS: BP 135/75
[2022-01-25 05:53] LABS: HEMATOCRIT 24.9 % (42.0-52.0); HEMOGLOBIN 7.6 g/dl (13.5-17.5); MEAN CORPUSCULAR HEMOGLOBIN 27.9 pg (27.0-33.0); MEAN CORPUSCULAR HGB CONC 30.5 g/dl (32.0-36.5); MEAN CORPUSCULAR VOLUME 91.5 fl (80.0-96.0); PLATELET COUNT, AUTOMATED 349 10^3/uL (150-450); RED BLOOD COUNT 2.72 10^6/uL (4.30-6.10); WHITE BLOOD COUNT 11.2 10^3/uL (4.0-10.0)
[2022-01-25 06:25] LABS: ALBUMIN 2.4 GM/DL (3.2-5.2); ALT/SGPT 11 U/L (12-78); BILIRUBIN,TOTAL 0.5 MG/DL (0.2-1.0); BLOOD UREA NITROGEN 20 MG/DL (7-18); CARBON DIOXIDE LEVEL 26 MEQ/L (21-32); CHLORIDE LEVEL 110 MEQ/L (98-107); CREATININE FOR GFR 1.17 MG/DL (0.70-1.30); GLOMERULAR FILTRATION RATE > 60.0 (>42); GLUCOSE, FASTING 42 MG/DL (70-100); MAGNESIUM LEVEL 1.4 MG/DL (1.8-2.4); POTASSIUM SERUM 3.7 MEQ/L (3.5-5.1); SODIUM LEVEL 141 MEQ/L (136-145); TOTAL PROTEIN 5.5 GM/DL (6.4-8.2)
[2022-01-25] MEDS ORDERED: MAGNESIUM OXIDE 400MG TAB (MAG-OX) PO ONE (07:20)
[2022-01-25] MEDS: INSULIN LISPRO (NovoLOG) PER UNIT SC SCH ×4 (07:30→20:32)
[2022-01-25] MEDS: LEVEMIR (INSULIN DETEMIR) 1 UNITS/0.01ML SC SCH ×2 (08:17→21:00)
[2022-01-25] MEDS: PANTOPRAZOLE 40MG TAB (PROTONIX) PO SCH (08:24)
[2022-01-25] MEDS: MULTIVITAMINS/MINERALS THERAP 1 TAB PO SCH (08:25)
[2022-01-25] MEDS: METOPROLOL TART 25 MG TABLET PO SCH ×2 (08:33→21:07)
[2022-01-25 11:23] LABS: HEMOGLOBIN 7.4 g/dl (13.5-17.5)
[2022-01-25] MEDS: cefTRIAXone SOD 1 GM in D5W MINI-BAG PLUS 50 ML IV SCH (13:27)
[2022-01-25 14:00] VITALS: BP 140/64
[2022-01-25] MEDS ORDERED: LANTINJ4 SC (16:33)
[2022-01-25] MEDS ORDERED: CIPR500S PO (16:33)
[2022-01-25 21:00] LABS: HEMATOCRIT 25.8 % (42.0-52.0); HEMOGLOBIN 7.7 g/dl (13.5-17.5)
[2022-01-25] MEDS: SIMVASTATIN 40 MG TAB PO SCH (21:08)
[2022-01-25] MEDS: LATANOPROST 0.005% OPHTH SOLN 2.5 ML OU SCH (21:15)
[2022-01-25 22:00] VITALS: BP 152/66
[2022-01-26 06:00] VITALS: BP 122/66
[2022-01-26 06:11] LABS: BASO # 0.1 10^3/uL (0.0-0.2); BASO % 0.6 % (0.0-1.0); EOS % 9.9 % (0.0-3.0); HEMATOCRIT 24.4 % (42.0-52.0); HEMOGLOBIN 7.4 g/dl (13.5-17.5); LYMPH # 0.8 10^3/uL (1.5-5.0); LYMPH % 8.3 % (24.0-44.0); MEAN CORPUSCULAR HEMOGLOBIN 27.8 pg (27.0-33.0); MEAN CORPUSCULAR HGB CONC 30.3 g/dl (32.0-36.5); MEAN CORPUSCULAR VOLUME 91.7 fl (80.0-96.0); MONO # 0.9 10^3/uL (0.0-0.8); MONO % 8.7 % (2.0-8.0); NEUTROPHILS # 7.3 10^3/uL (1.5-8.5); NEUTROPHILS % 71.9 % (36.0-66.0); PLATELET COUNT, AUTOMATED 348 10^3/uL (150-450); RED BLOOD COUNT 2.66 10^6/uL (4.30-6.10); WHITE BLOOD COUNT 10.2 10^3/uL (4.0-10.0)
[2022-01-26 06:50] LABS: BLOOD UREA NITROGEN 15 MG/DL (7-18); CALCIUM LEVEL 8.2 MG/DL (8.8-10.2); CARBON DIOXIDE LEVEL 26 MEQ/L (21-32); CHLORIDE LEVEL 106 MEQ/L (98-107); CREATININE FOR GFR 1.18 MG/DL (0.70-1.30); GLOMERULAR FILTRATION RATE > 60.0 (>42); GLUCOSE, FASTING 100 MG/DL (70-100); POTASSIUM SERUM 4.1 MEQ/L (3.5-5.1); SODIUM LEVEL 139 MEQ/L (136-145)
[2022-01-26 06:51] LABS: ALBUMIN 2.3 GM/DL (3.2-5.2); ALT/SGPT 18 U/L (12-78); BILIRUBIN,TOTAL 0.5 MG/DL (0.2-1.0); FERRITIN 116 NG/ML (26-388); IRON (FE) 16 UG/DL (65-175); MAGNESIUM LEVEL 1.4 MG/DL (1.8-2.4); TOTAL IRON BINDING CAPACITY 228 UG/DL (250-450); TOTAL PROTEIN 5.4 GM/DL (6.4-8.2)
[2022-01-26] MEDS: INSULIN LISPRO (NovoLOG) PER UNIT SC SCH ×4 (07:30→20:15)
[2022-01-26] MEDS ORDERED: MAGNESIUM OXIDE 400MG TAB (MAG-OX) PO ONE (09:00)
[2022-01-26] MEDS: LEVEMIR (INSULIN DETEMIR) 1 UNITS/0.01ML SC SCH ×2 (10:13→20:30)
[2022-01-26] MEDS: MULTIVITAMINS/MINERALS THERAP 1 TAB PO SCH (10:14)
[2022-01-26] MEDS: METOPROLOL TART 25 MG TABLET PO SCH ×2 (10:14→20:29)
[2022-01-26] MEDS: PANTOPRAZOLE 40MG TAB (PROTONIX) PO SCH (10:14)
[2022-01-26 13:11] LABS: HEMATOCRIT 24.9 % (42.0-52.0); HEMOGLOBIN 7.6 g/dl (13.5-17.5)
[2022-01-26 14:00] VITALS: BP 129/64
[2022-01-26] MEDS: cefTRIAXone SOD 1 GM in D5W MINI-BAG PLUS 50 ML IV SCH (15:03)
[2022-01-26] MEDS: SIMVASTATIN 40 MG TAB PO SCH (20:29)
[2022-01-26] MEDS: LATANOPROST 0.005% OPHTH SOLN 2.5 ML OU SCH (20:30)
[2022-01-26 21:10] VITALS: BP 138/65
[2022-01-26 21:11] LABS: HEMATOCRIT 24.9 % (42.0-52.0); HEMOGLOBIN 7.7 g/dl (13.5-17.5)
[2022-01-27 05:36] VITALS: BP 133/69
[2022-01-27 06:31] LABS: BASO # 0.1 10^3/uL (0.0-0.2); BASO % 0.5 % (0.0-1.0); EOS % 9.7 % (0.0-3.0); HEMATOCRIT 24.9 % (42.0-52.0); HEMOGLOBIN 7.7 g/dl (13.5-17.5); LYMPH # 0.8 10^3/uL (1.5-5.0); LYMPH % 7.7 % (24.0-44.0); MEAN CORPUSCULAR HEMOGLOBIN 28.1 pg (27.0-33.0); MEAN CORPUSCULAR HGB CONC 30.9 g/dl (32.0-36.5); MEAN CORPUSCULAR VOLUME 90.9 fl (80.0-96.0); MONO # 0.9 10^3/uL (0.0-0.8); MONO % 8.7 % (2.0-8.0); NEUTROPHILS # 7.1 10^3/uL (1.5-8.5); NEUTROPHILS % 72.8 % (36.0-66.0); PLATELET COUNT, AUTOMATED 378 10^3/uL (150-450); RED BLOOD COUNT 2.74 10^6/uL (4.30-6.10); WHITE BLOOD COUNT 9.8 10^3/uL (4.0-10.0)
[2022-01-27 07:10] LABS: ALBUMIN 2.5 GM/DL (3.2-5.2); ALT/SGPT 19 U/L (12-78); BILIRUBIN,TOTAL 0.4 MG/DL (0.2-1.0); BLOOD UREA NITROGEN 18 MG/DL (7-18); CALCIUM LEVEL 8.2 MG/DL (8.8-10.2); CARBON DIOXIDE LEVEL 29 MEQ/L (21-32); CHLORIDE LEVEL 103 MEQ/L (98-107); CREATININE FOR GFR 1.07 MG/DL (0.70-1.30); GLOMERULAR FILTRATION RATE > 60.0 (>42); GLUCOSE, FASTING 71 MG/DL (70-100); MAGNESIUM LEVEL 1.5 MG/DL (1.8-2.4); POTASSIUM SERUM 3.8 MEQ/L (3.5-5.1); SODIUM LEVEL 137 MEQ/L (136-145); TOTAL PROTEIN 5.8 GM/DL (6.4-8.2)
[2022-01-27] MEDS: INSULIN LISPRO (NovoLOG) PER UNIT SC SCH ×4 (07:30→20:50)
[2022-01-27] MEDS: LEVEMIR (INSULIN DETEMIR) 1 UNITS/0.01ML SC SCH ×2 (08:03→20:50)
[2022-01-27] MEDS: MULTIVITAMINS/MINERALS THERAP 1 TAB PO SCH (09:14)
[2022-01-27] MEDS: METOPROLOL TART 25 MG TABLET PO SCH ×2 (09:14→20:51)
[2022-01-27] MEDS: PANTOPRAZOLE 40MG TAB (PROTONIX) PO SCH (09:15)
[2022-01-27] MEDS: cefTRIAXone SOD 1 GM in D5W MINI-BAG PLUS 50 ML IV SCH (13:15)
[2022-01-27 14:00] VITALS: BP 126/60
[2022-01-27] MEDS: amLODIPine 5 MG TAB PO SCH (14:47)
[2022-01-27] MEDS: SIMVASTATIN 40 MG TAB PO SCH (20:50)
[2022-01-27] MEDS: LATANOPROST 0.005% OPHTH SOLN 2.5 ML OU SCH (20:51)
[2022-01-27 22:00] VITALS: BP 131/61
[2022-01-27] MEDS ORDERED: LEVEMIR (INSULIN DETEMIR) 1 UNITS/0.01ML SC ONE (22:10)
[2022-01-28 06:00] VITALS: BP 137/64
[2022-01-28 06:28] LABS: BASO # 0.1 10^3/uL (0.0-0.2); BASO % 0.6 % (0.0-1.0); EOS # 1.1 10^3/uL (0.0-0.5); HEMATOCRIT 26.9 % (42.0-52.0); HEMOGLOBIN 8.2 g/dl (13.5-17.5); LYMPH # 0.8 10^3/uL (1.5-5.0); LYMPH % 8.3 % (24.0-44.0); MEAN CORPUSCULAR HEMOGLOBIN 27.4 pg (27.0-33.0); MEAN CORPUSCULAR HGB CONC 30.5 g/dl (32.0-36.5); MONO # 0.8 10^3/uL (0.0-0.8); NEUTROPHILS # 6.9 10^3/uL (1.5-8.5); NEUTROPHILS % 71.6 % (36.0-66.0); PLATELET COUNT, AUTOMATED 373 10^3/uL (150-450); RED BLOOD COUNT 2.99 10^6/uL (4.30-6.10); WHITE BLOOD COUNT 9.7 10^3/uL (4.0-10.0)
[2022-01-28 06:52] LABS: ALBUMIN 2.3 GM/DL (3.2-5.2); ALT/SGPT 19 U/L (12-78); BILIRUBIN,TOTAL 0.3 MG/DL (0.2-1.0); BLOOD UREA NITROGEN 13 MG/DL (7-18); CALCIUM LEVEL 8.3 MG/DL (8.8-10.2); CARBON DIOXIDE LEVEL 31 MEQ/L (21-32); CHLORIDE LEVEL 105 MEQ/L (98-107); CREATININE FOR GFR 1.07 MG/DL (0.70-1.30); GLOMERULAR FILTRATION RATE > 60.0 (>42); GLUCOSE, FASTING 101 MG/DL (70-100); MAGNESIUM LEVEL 1.7 MG/DL (1.8-2.4); POTASSIUM SERUM 3.8 MEQ/L (3.5-5.1); SODIUM LEVEL 142 MEQ/L (136-145); TOTAL PROTEIN 5.8 GM/DL (6.4-8.2)
[2022-01-28] MEDS: INSULIN LISPRO (NovoLOG) PER UNIT SC SCH ×4 (07:30→21:00)
[2022-01-28] MEDS: MULTIVITAMINS/MINERALS THERAP 1 TAB PO SCH (08:38)
[2022-01-28] MEDS: PANTOPRAZOLE 40MG TAB (PROTONIX) PO SCH (08:38)
[2022-01-28] MEDS: METOPROLOL TART 25 MG TABLET PO SCH ×2 (08:39→21:10)
[2022-01-28] MEDS: amLODIPine 5 MG TAB PO SCH (08:39)
[2022-01-28] MEDS: ASPIRIN 81MG ENTERIC TABLET PO SCH (09:00)
[2022-01-28 20:00] VITALS: BP 117/60
[2022-01-28] MEDS ORDERED: LEVEMIR (INSULIN DETEMIR) 1 UNITS/0.01ML SC SCH ×2 (21:00)
[2022-01-28] MEDS: LATANOPROST 0.005% OPHTH SOLN 2.5 ML OU SCH (21:09)
[2022-01-28] MEDS: SIMVASTATIN 40 MG TAB PO SCH (21:10)
[2022-01-29 05:59] VITALS: BP 126/65
[2022-01-29 06:34] LABS: BASO # 0.1 10^3/uL (0.0-0.2); BASO % 0.8 % (0.0-1.0); EOS # 0.9 10^3/uL (0.0-0.5); EOS % 8.9 % (0.0-3.0); HEMOGLOBIN 8.6 g/dl (13.5-17.5); LYMPH # 0.9 10^3/uL (1.5-5.0); LYMPH % 8.3 % (24.0-44.0); MEAN CORPUSCULAR HEMOGLOBIN 27.1 pg (27.0-33.0); MEAN CORPUSCULAR HGB CONC 30.7 g/dl (32.0-36.5); MEAN CORPUSCULAR VOLUME 88.3 fl (80.0-96.0); MONO # 0.8 10^3/uL (0.0-0.8); NEUTROPHILS # 7.6 10^3/uL (1.5-8.5); NEUTROPHILS % 73.4 % (36.0-66.0); PLATELET COUNT, AUTOMATED 416 10^3/uL (150-450); RED BLOOD COUNT 3.17 10^6/uL (4.30-6.10); WHITE BLOOD COUNT 10.3 10^3/uL (4.0-10.0)
[2022-01-29 07:06] LABS: ALBUMIN 2.4 GM/DL (3.2-5.2); ALT/SGPT 23 U/L (12-78); BILIRUBIN,TOTAL 0.4 MG/DL (0.2-1.0); BLOOD UREA NITROGEN 15 MG/DL (7-18); CALCIUM LEVEL 8.5 MG/DL (8.8-10.2); CARBON DIOXIDE LEVEL 30 MEQ/L (21-32); CHLORIDE LEVEL 106 MEQ/L (98-107); GLOMERULAR FILTRATION RATE > 60.0 (>42); GLUCOSE, FASTING 59 MG/DL (70-100); MAGNESIUM LEVEL 1.8 MG/DL (1.8-2.4); POTASSIUM SERUM 3.9 MEQ/L (3.5-5.1); SODIUM LEVEL 142 MEQ/L (136-145); TOTAL PROTEIN 6.3 GM/DL (6.4-8.2)
[2022-01-29] MEDS: INSULIN LISPRO (NovoLOG) PER UNIT SC SCH ×4 (07:30→20:43)
[2022-01-29] MEDS ORDERED: ASPIRIN 81MG ENTERIC TABLET PO SCH (09:00)
[2022-01-29] MEDS: PANTOPRAZOLE 40MG TAB (PROTONIX) PO SCH (09:08)
[2022-01-29] MEDS: CEFDINIR 300 MG CAP (OMNICEF) PO SCH ×2 (09:08→21:06)
[2022-01-29] MEDS: MULTIVITAMINS/MINERALS THERAP 1 TAB PO SCH (09:08)
[2022-01-29] MEDS: ASPIRIN 81MG ENTERIC TABLET PO SCH (09:08)
[2022-01-29] MEDS: amLODIPine 5 MG TAB PO SCH (09:09)
[2022-01-29] MEDS: METOPROLOL TART 25 MG TABLET PO SCH ×2 (09:09→21:08)
[2022-01-29] MEDS ORDERED: ZYVO1TAB PO (13:13)
[2022-01-29 14:00] VITALS: BP 135/62
[2022-01-29] MEDS ORDERED: LINE1TAB6 PO (14:39)
[2022-01-29] MEDS: LINEZOLID 600MG TABLET (ZYVOX) PO SCH ×2 (14:40→21:06)
[2022-01-29] MEDS: SIMVASTATIN 40 MG TAB PO SCH (21:06)
[2022-01-29] MEDS: LEVEMIR (INSULIN DETEMIR) 1 UNITS/0.01ML SC SCH (21:06)
[2022-01-29] MEDS: LATANOPROST 0.005% OPHTH SOLN 2.5 ML OU SCH (21:06)
[2022-01-29 21:09] VITALS: BP 118/65
[2022-01-30 06:00] VITALS: BP 127/65
[2022-01-30 06:35] LABS: BASO # 0.1 10^3/uL (0.0-0.2); BASO % 0.5 % (0.0-1.0); EOS % 9.3 % (0.0-3.0); HEMATOCRIT 27.3 % (42.0-52.0); HEMOGLOBIN 8.4 g/dl (13.5-17.5); LYMPH # 0.8 10^3/uL (1.5-5.0); LYMPH % 7.5 % (24.0-44.0); MEAN CORPUSCULAR HEMOGLOBIN 27.5 pg (27.0-33.0); MEAN CORPUSCULAR HGB CONC 30.8 g/dl (32.0-36.5); MEAN CORPUSCULAR VOLUME 89.5 fl (80.0-96.0); MONO % 8.8 % (2.0-8.0); NEUTROPHILS % 72.9 % (36.0-66.0); PLATELET COUNT, AUTOMATED 457 10^3/uL (150-450); RED BLOOD COUNT 3.05 10^6/uL (4.30-6.10); WHITE BLOOD COUNT 10.9 10^3/uL (4.0-10.0)
[2022-01-30 07:11] LABS: ALBUMIN 2.7 GM/DL (3.2-5.2); ALT/SGPT 21 U/L (12-78); BILIRUBIN,TOTAL 0.4 MG/DL (0.2-1.0); BLOOD UREA NITROGEN 16 MG/DL (7-18); CALCIUM LEVEL 9.1 MG/DL (8.8-10.2); CARBON DIOXIDE LEVEL 27 MEQ/L (21-32); CHLORIDE LEVEL 101 MEQ/L (98-107); GLOMERULAR FILTRATION RATE > 60.0 (>42); GLUCOSE, FASTING 140 MG/DL (70-100); MAGNESIUM LEVEL 1.5 MG/DL (1.8-2.4); POTASSIUM SERUM 4.1 MEQ/L (3.5-5.1); SODIUM LEVEL 135 MEQ/L (136-145); TOTAL PROTEIN 6.3 GM/DL (6.4-8.2)
[2022-01-30] MEDS: MIRALAX *UNIT DOSE* 17GM PACKET PO SCH (09:00)
[2022-01-30] MEDS: INSULIN LISPRO (NovoLOG) PER UNIT SC SCH ×4 (11:09→21:00)
[2022-01-30] MEDS: CEFDINIR 300 MG CAP (OMNICEF) PO SCH ×2 (11:10→21:13)
[2022-01-30] MEDS: MAG SULF 1GM/100ML (MAG RUN) 1 GM in IV 1 EA IV SCH ×2 (11:10→12:28)
[2022-01-30] MEDS: MULTIVITAMINS/MINERALS THERAP 1 TAB PO SCH (11:10)
[2022-01-30] MEDS: ASPIRIN 81MG ENTERIC TABLET PO SCH (11:10)
[2022-01-30] MEDS: LINEZOLID 600MG TABLET (ZYVOX) PO SCH ×2 (11:11→21:13)
[2022-01-30] MEDS: amLODIPine 5 MG TAB PO SCH (11:11)
[2022-01-30] MEDS: METOPROLOL TART 25 MG TABLET PO SCH ×2 (11:11→21:12)
[2022-01-30] MEDS: PANTOPRAZOLE 40MG TAB (PROTONIX) PO SCH (11:11)
[2022-01-30 14:00] VITALS: BP 132/65
[2022-01-30] MEDS ORDERED: SENNA 8.6 MG TAB (SENOKOT) PO PRN (15:45)
[2022-01-30 20:42] VITALS: BP 138/62
[2022-01-30 21:12] VITALS: BP 138/62
[2022-01-30] MEDS: DOCUSATE SODIUM 100MG CAPSULE PO SCH (21:12)
[2022-01-30] MEDS: LEVEMIR (INSULIN DETEMIR) 1 UNITS/0.01ML SC SCH (21:13)
[2022-01-30] MEDS: LATANOPROST 0.005% OPHTH SOLN 2.5 ML OU SCH (21:13)
[2022-01-30] MEDS: SIMVASTATIN 40 MG TAB PO SCH (21:13)
[2022-01-31 05:23] VITALS: BP 125/64
[2022-01-31] MEDS: INSULIN LISPRO (NovoLOG) PER UNIT SC SCH ×2 (07:30→12:00)
[2022-01-31] MEDS ORDERED: AMLO1TAB24 PO (08:25)
[2022-01-31] MEDS ORDERED: LANTINJ4 SC (08:25)
[2022-01-31] MEDS ORDERED: MIRA1POW3 PO (08:25)
[2022-01-31] MEDS: DOCUSATE SODIUM 100MG CAPSULE PO SCH (09:50)
[2022-01-31] MEDS: MULTIVITAMINS/MINERALS THERAP 1 TAB PO SCH (09:50)
[2022-01-31] MEDS: ASPIRIN 81MG ENTERIC TABLET PO SCH (09:50)
[2022-01-31] MEDS: LINEZOLID 600MG TABLET (ZYVOX) PO SCH (09:50)
[2022-01-31] MEDS: PANTOPRAZOLE 40MG TAB (PROTONIX) PO SCH (09:50)
[2022-01-31] MEDS: MIRALAX *UNIT DOSE* 17GM PACKET PO SCH (09:50)
[2022-01-31] MEDS: METOPROLOL TART 25 MG TABLET PO SCH (09:51)
[2022-01-31] MEDS: amLODIPine 5 MG TAB PO SCH (09:51)
== END 2022-01-31 13:27 | disposition home or self-care (01) | DRG 683 ==
LOC: EDBD 08:45 → M ED 08:45 → M ED INP 16:37 → M MSPAV 20:25
PROVIDERS: ADMIT Family Medicine; ATTEND Internal Medicine
DX: N17.9 Acute kidney failure, unspecified (principal); D62 Acute posthemorrhagic anemia; N39.0 Urinary tract infection, site not specified; E11.649 Type 2 diabetes mellitus with hypoglycemia without coma; I10 Essential (primary) hypertension; I25.10 Atherosclerotic heart disease of native coronary artery without angina pectoris; E78.5 Hyperlipidemia, unspecified; R31.0 Gross hematuria; Z79.4 Long term (current) use of insulin; Z85.46 Personal history of malignant neoplasm of prostate; Z95.2 Presence of prosthetic heart valve; Z79.82 Long term (current) use of aspirin; Z79.899 Other long term (current) drug therapy; R33.9 Retention of urine, unspecified

== ENCOUNTER → 2022-02-09 | Outpatient (CLI) | payer MEDICARE, OTHER ==
[~2022-02-09] MED LIST changes: +AMLO1TAB24 PO; +CIPR500S PO; +LINE1TAB6 PO; +MIRA1POW3 PO; +ZYVO1TAB PO
== END ==
LOC: M RAD 10:01
PROVIDERS: ATTEND Urology
DX: R33.9 Retention of urine, unspecified (principal); N18.9 Chronic kidney disease, unspecified

== ENCOUNTER 2022-02-20 11:52 | Inpatient (IN) | payer OTHER ==
[~2022-02-20] VITALS: Ht 167.6 cm; Wt 83.2 kg
[2022-02-20 15:34] LABS: BASO % 0.2 % (0.0-1.0); EOS # 0.1 10^3/uL (0.0-0.5); EOS % 0.3 % (0.0-3.0); HEMATOCRIT 33.2 % (42.0-52.0); HEMOGLOBIN 10.2 g/dl (13.5-17.5); LYMPH # 0.5 10^3/uL (1.5-5.0); LYMPH % 3.2 % (24.0-44.0); MEAN CORPUSCULAR HEMOGLOBIN 26.6 pg (27.0-33.0); MEAN CORPUSCULAR HGB CONC 30.7 g/dl (32.0-36.5); MEAN CORPUSCULAR VOLUME 86.7 fl (80.0-96.0); MONO % 5.8 % (2.0-8.0); NEUTROPHILS # 14.8 10^3/uL (1.5-8.5); PLATELET COUNT, AUTOMATED 423 10^3/uL (150-450); RED BLOOD COUNT 3.83 10^6/uL (4.30-6.10); WHITE BLOOD COUNT 16.5 10^3/uL (4.0-10.0)
[2022-02-20 16:16] LABS: APPEARANCE, URINE MANUAL TURBID (CLEAR); COLOR, URINE MANUAL BROWN (YELLOW)
[2022-02-20 16:23] LABS: BILIRUBIN,DIRECT 0.1 MG/DL (0.0-0.2); BILIRUBIN,TOTAL 0.9 MG/DL (0.2-1.0); CALCIUM LEVEL 8.9 MG/DL (8.8-10.2); CREATININE FOR GFR 1.46 MG/DL (0.70-1.30); GLOMERULAR FILTRATION RATE 49.8 (>42); POTASSIUM SERUM 5.7 MEQ/L (3.5-5.1); TOTAL PROTEIN 7.3 GM/DL (6.4-8.2)
[2022-02-20 16:31] LABS: BILIRUBIN, URINE MANUAL NEGATIVE (NEGATIVE); BLOOD URINE MANUAL POSITIVE (NEGATIVE); GLUCOSE, URINE (UA) MANUAL NEGATIVE (NEGATIVE); KETONE, URINE MANUAL NEGATIVE (NEGATIVE); LEUKOCYTE ESTERASE, URINE MAN POSITIVE (NEGATIVE); NITRITE, URINE MANUAL NEGATIVE (NEGATIVE); PROTEIN, URINE MANUAL 2+ mg/dL (NEGATIVE); SPECIFIC GRAVITY,URINE MANUAL 1.015 (1.002-1.035); UROBILINOGEN, URINE MANUAL NORMAL (NORMAL)
[2022-02-20 16:49] LABS: AMORPHOUS SEDIMENT, URINE LARGE AMOUNT (NEGATIVE); BACTERIA, URINE MOD AMOUNT; HYALINE CAST, URINE NONE SEEN /lpf (0-1); RBC, URINE 40-50 /hpf (0-3); SQUAMOUS EPITHELIAL CELL URINE NONE SEEN /hpf (SMALL AMT); WBC, URINE 20-30 /hpf (0-3)
[2022-02-20] MEDS ORDERED: PIPERACILLIN/TAZOBACTAM SOD 4.5 GM in D5W MINI-BAG PLUS 50 ML IV ONE (17:00)
[2022-02-20] MEDS: INSULIN LISPRO (NovoLOG) PER UNIT SC SCH ×2 (17:30→21:00)
[2022-02-20] MEDS ORDERED: GLUCAGON INJ 1MG VIAL SC PRN (18:00)
[2022-02-20] MEDS ORDERED: GLUCOSE 4GM CHEW TABLET PO PRN (18:00)
[2022-02-20] MEDS ORDERED: DEXTROSE 50% 50 ML SYRINGE IV PRN (18:00)
[2022-02-20] MEDS ORDERED: POLY17PO10 PO (18:50)
[2022-02-20] MEDS ORDERED: TRAM50TA2 PO (18:52)
[2022-02-20] MEDS ORDERED: GABA-282 PO (18:52)
[2022-02-20] MEDS ORDERED: HOME MED LIST COMPLETE! XX SCH (18:55)
[2022-02-20] MEDS: NS 1,000 ML IV SCH (19:48)
[2022-02-20] MEDS: PANTOPRAZOLE 40MG TAB (PROTONIX) PO SCH (23:28)
[2022-02-20] MEDS: SIMVASTATIN 40 MG TAB PO SCH (23:28)
[2022-02-20] MEDS: METOPROLOL TART 25 MG TABLET PO SCH (23:28)
[2022-02-20] MEDS: LINEZOLID 600MG TABLET (ZYVOX) PO SCH (23:44)
[2022-02-20 23:56] VITALS: BP 152/70
[2022-02-21] VITALS (12 sets, daily range): BP systolic 114–149; BP diastolic 56–67
[2022-02-21] MEDS: NS 1,000 ML IV SCH ×2 (00:17→16:21)
[2022-02-21] MEDS ORDERED: PIPERACILLIN/TAZOBACTAM SOD 4.5 GM in D5W MINI-BAG PLUS 50 ML IV SCH (01:00)
[2022-02-21 06:50] LABS: HEMATOCRIT 25.4 % (42.0-52.0); MEAN CORPUSCULAR HEMOGLOBIN 26.6 pg (27.0-33.0); MEAN CORPUSCULAR HGB CONC 30.7 g/dl (32.0-36.5); MEAN CORPUSCULAR VOLUME 86.7 fl (80.0-96.0); PLATELET COUNT, AUTOMATED 359 10^3/uL (150-450); RED BLOOD COUNT 2.93 10^6/uL (4.30-6.10)
[2022-02-21 07:02] LABS: HEMOGLOBIN 7.8 g/dl (13.5-17.5)
[2022-02-21 07:24] LABS: BLOOD UREA NITROGEN 20 MG/DL (7-18); CALCIUM LEVEL 7.8 MG/DL (8.8-10.2); CARBON DIOXIDE LEVEL 26 MEQ/L (21-32); CHLORIDE LEVEL 105 MEQ/L (98-107); CREATININE FOR GFR 1.23 MG/DL (0.70-1.30); GLOMERULAR FILTRATION RATE > 60.0 (>42); GLUCOSE, FASTING 129 MG/DL (70-100); POTASSIUM SERUM 4.4 MEQ/L (3.5-5.1); SODIUM LEVEL 136 MEQ/L (136-145)
[2022-02-21] MEDS: INSULIN LISPRO (NovoLOG) PER UNIT SC SCH ×4 (07:30→20:40)
[2022-02-21] MEDS: METOPROLOL TART 25 MG TABLET PO SCH ×2 (08:22→20:39)
[2022-02-21] MEDS: PANTOPRAZOLE 40MG TAB (PROTONIX) PO SCH (08:39)
[2022-02-21] MEDS: LINEZOLID 600MG TABLET (ZYVOX) PO SCH ×2 (08:39→20:40)
[2022-02-21] MEDS: ENOXAPARIN 40MG/0.4ML SYRINGE (J1650 PER 10MG) SC SCH (08:40)
[2022-02-21] MEDS: PIPERACILLIN/TAZOBACTAM SOD 4.5 GM in D5W MINI-BAG PLUS 50 ML IV SCH ×3 (09:30→22:16)
[2022-02-21 10:16] LABS: INR 1.43; PROTHROMBIN TIME 17.9 SECONDS (12.7-14.5)
[2022-02-21 10:17] LABS: PARTIAL THROMBOPLASTIN TIME 38.9 SECONDS (25.9-37.0)
[2022-02-21] MEDS ORDERED: fentaNYL 250 MCG/5 ML INJECTION As Ordered ONE (12:36)
[2022-02-21] MEDS ORDERED: MIDAZOLAM INJ 2MG/2ML VIAL (J2250 PER 1MG) As Ordered ONE (12:36)
[2022-02-21] MEDS ORDERED: ACETAMINOPHEN 1000MG 100ML IV BTL (OFIRMEV) (J0131 PER 10MG) As Ordered ONE (12:36)
[2022-02-21] MEDS ORDERED: ONDANSETRON 4MG 2ML VIAL As Ordered ONE (12:36)
[2022-02-21] MEDS ORDERED: dexameTHASONE 4 MG/ML 1ML VIAL (J1100 PER 1MG) As Ordered ONE (12:36)
[2022-02-21] MEDS ORDERED: propofoL 200 MG/20 ML VIAL As Ordered ONE (12:36)
[2022-02-21] MEDS ORDERED: LIDOCAINE 2% INJ 100 MG/5 ML SYRINGE As Ordered ONE (12:36)
[2022-02-21] MEDS ORDERED: ETOMIDATE INJ 20MG/10ML VIAL As Ordered ONE (12:36)
[2022-02-21] MEDS ORDERED: PHENYLEPHRINE 10MG/ML 1ML VIAL (J2370 PER 1) As Ordered ONE (12:42)
[2022-02-21] MEDS ORDERED: LIDOCAINE 1% MDV 20ML VIAL As Ordered ONE (12:47)
[2022-02-21] MEDS ORDERED: PHENYLephrine 500MCG 5ML (100MCG/ML) SYRINGE As Ordered ONE (12:56)
[2022-02-21] MEDS ORDERED: GENTAMICIN SULF 80MG/2ML VIAL As Ordered ONE (13:25)
[2022-02-21] MEDS ORDERED: LR 1,000 ML IV SCH (14:15)
[2022-02-21] MEDS ORDERED: MORPHINE 2 MG/ML 1ML VIAL IV PRN (14:15)
[2022-02-21] MEDS ORDERED: oxyCODONE 5MG TAB PO PRN (14:15)
[2022-02-21] MEDS ORDERED: fentaNYL 100 MCG/2 ML INJECTION IV PRN (14:15)
[2022-02-21] MEDS ORDERED: ONDANSETRON 4MG 2ML VIAL IV PRN (14:15)
[2022-02-21] MEDS ORDERED: BACITRACIN OINTMENT 30GM TUBE As Ordered ONE (14:27)
[2022-02-21 15:35] LABS: HEMATOCRIT 32.6 % (42.0-52.0); MEAN CORPUSCULAR HEMOGLOBIN 27.6 pg (27.0-33.0); MEAN CORPUSCULAR HGB CONC 31.9 g/dl (32.0-36.5); MEAN CORPUSCULAR VOLUME 86.5 fl (80.0-96.0); PLATELET COUNT, AUTOMATED 361 10^3/uL (150-450); RED BLOOD COUNT 3.77 10^6/uL (4.30-6.10); WHITE BLOOD COUNT 17.7 10^3/uL (4.0-10.0)
[2022-02-21 15:47] LABS: HEMOGLOBIN 10.4 g/dl (13.5-17.5)
[2022-02-21] MEDS: SIMVASTATIN 40 MG TAB PO SCH (20:39)
[2022-02-22] VITALS: BP 112/54
[2022-02-22 04:00] VITALS: BP 115/53
[2022-02-22] MEDS: PIPERACILLIN/TAZOBACTAM SOD 4.5 GM in D5W MINI-BAG PLUS 50 ML IV SCH ×4 (04:15→21:16)
[2022-02-22] MEDS: NS 1,000 ML IV SCH ×3 (04:57→15:54)
[2022-02-22 05:13] LABS: HEMATOCRIT 28.7 % (42.0-52.0); MEAN CORPUSCULAR HEMOGLOBIN 27.2 pg (27.0-33.0); MEAN CORPUSCULAR HGB CONC 31.4 g/dl (32.0-36.5); MEAN CORPUSCULAR VOLUME 86.7 fl (80.0-96.0); PLATELET COUNT, AUTOMATED 365 10^3/uL (150-450); RED BLOOD COUNT 3.31 10^6/uL (4.30-6.10); WHITE BLOOD COUNT 19.4 10^3/uL (4.0-10.0)
[2022-02-22 05:40] LABS: BLOOD UREA NITROGEN 23 MG/DL (7-18); CALCIUM LEVEL 7.8 MG/DL (8.8-10.2); CARBON DIOXIDE LEVEL 25 MEQ/L (21-32); CHLORIDE LEVEL 107 MEQ/L (98-107); CREATININE FOR GFR 1.23 MG/DL (0.70-1.30); GLOMERULAR FILTRATION RATE > 60.0 (>42); GLUCOSE, FASTING 219 MG/DL (70-100); POTASSIUM SERUM 4.4 MEQ/L (3.5-5.1); SODIUM LEVEL 138 MEQ/L (136-145)
[2022-02-22 08:15] VITALS: BP 106/53
[2022-02-22] MEDS: ENOXAPARIN 40MG/0.4ML SYRINGE (J1650 PER 10MG) SC SCH (08:48)
[2022-02-22] MEDS: INSULIN LISPRO (NovoLOG) PER UNIT SC SCH ×4 (08:48→20:37)
[2022-02-22] MEDS: PANTOPRAZOLE 40MG TAB (PROTONIX) PO SCH (08:48)
[2022-02-22] MEDS: LINEZOLID 600MG TABLET (ZYVOX) PO SCH ×2 (08:48→20:36)
[2022-02-22] MEDS: METOPROLOL TART 25 MG TABLET PO SCH ×2 (08:49→20:37)
[2022-02-22 12:00] VITALS: BP 118/56
[2022-02-22 17:09] VITALS: BP 123/58
[2022-02-22 20:00] VITALS: BP 129/60
[2022-02-22] MEDS: SIMVASTATIN 40 MG TAB PO SCH (20:36)
[2022-02-23] VITALS: BP 121/63
[2022-02-23] MEDS: PIPERACILLIN/TAZOBACTAM SOD 4.5 GM in D5W MINI-BAG PLUS 50 ML IV SCH ×4 (03:06→21:57)
[2022-02-23 04:00] VITALS: BP 117/56
[2022-02-23] MEDS: NS 1,000 ML IV SCH (06:09)
[2022-02-23 06:24] LABS: HEMATOCRIT 25.3 % (42.0-52.0); HEMOGLOBIN 8.1 g/dl (13.5-17.5); MEAN CORPUSCULAR HEMOGLOBIN 27.6 pg (27.0-33.0); MEAN CORPUSCULAR VOLUME 86.1 fl (80.0-96.0); PLATELET COUNT, AUTOMATED 372 10^3/uL (150-450); RED BLOOD COUNT 2.94 10^6/uL (4.30-6.10)
[2022-02-23 07:38] LABS: BLOOD UREA NITROGEN 20 MG/DL (7-18); CALCIUM LEVEL 8.3 MG/DL (8.8-10.2); CARBON DIOXIDE LEVEL 25 MEQ/L (21-32); CHLORIDE LEVEL 107 MEQ/L (98-107); CREATININE FOR GFR 1.15 MG/DL (0.70-1.30); GLOMERULAR FILTRATION RATE > 60.0 (>42); GLUCOSE, FASTING 138 MG/DL (70-100); POTASSIUM SERUM 3.8 MEQ/L (3.5-5.1); SODIUM LEVEL 138 MEQ/L (136-145)
[2022-02-23 08:02] VITALS: BP 132/63
[2022-02-23] MEDS: ENOXAPARIN 40MG/0.4ML SYRINGE (J1650 PER 10MG) SC SCH (08:38)
[2022-02-23] MEDS: INSULIN LISPRO (NovoLOG) PER UNIT SC SCH ×4 (08:39→20:09)
[2022-02-23] MEDS: PANTOPRAZOLE 40MG TAB (PROTONIX) PO SCH (08:39)
[2022-02-23] MEDS: METOPROLOL TART 25 MG TABLET PO SCH ×2 (08:39→20:44)
[2022-02-23 12:59] VITALS: BP 119/60
[2022-02-23] MEDS: LINEZOLID 600MG TABLET (ZYVOX) PO SCH (13:12)
[2022-02-23 16:23] VITALS: BP 135/62
[2022-02-23 20:00] VITALS: BP 131/62
[2022-02-23] MEDS: SIMVASTATIN 40 MG TAB PO SCH (20:43)
[2022-02-24] VITALS (12 sets, daily range): BP systolic 121–162; BP diastolic 58–87
[2022-02-24] MEDS: PIPERACILLIN/TAZOBACTAM SOD 4.5 GM in D5W MINI-BAG PLUS 50 ML IV SCH ×2 (04:29→10:41)
[2022-02-24 05:58] LABS: HEMATOCRIT 25.6 % (42.0-52.0); HEMOGLOBIN 7.9 g/dl (13.5-17.5); MEAN CORPUSCULAR HEMOGLOBIN 27.1 pg (27.0-33.0); MEAN CORPUSCULAR HGB CONC 30.9 g/dl (32.0-36.5); PLATELET COUNT, AUTOMATED 359 10^3/uL (150-450); RED BLOOD COUNT 2.91 10^6/uL (4.30-6.10); WHITE BLOOD COUNT 10.4 10^3/uL (4.0-10.0)
[2022-02-24 06:28] LABS: BLOOD UREA NITROGEN 14 MG/DL (7-18); CALCIUM LEVEL 8.3 MG/DL (8.8-10.2); CARBON DIOXIDE LEVEL 29 MEQ/L (21-32); CHLORIDE LEVEL 107 MEQ/L (98-107); CREATININE FOR GFR 1.15 MG/DL (0.70-1.30); GLOMERULAR FILTRATION RATE > 60.0 (>42); GLUCOSE, FASTING 125 MG/DL (70-100); SODIUM LEVEL 139 MEQ/L (136-145)
[2022-02-24 08:18] LABS: HEMATOCRIT 25.8 % (42.0-52.0); HEMOGLOBIN 8.2 g/dl (13.5-17.5)
[2022-02-24] MEDS: INSULIN LISPRO (NovoLOG) PER UNIT SC SCH ×4 (08:58→21:00)
[2022-02-24] MEDS: ENOXAPARIN 40MG/0.4ML SYRINGE (J1650 PER 10MG) SC SCH (08:59)
[2022-02-24] MEDS: PANTOPRAZOLE 40MG TAB (PROTONIX) PO SCH (08:59)
[2022-02-24] MEDS: METOPROLOL TART 25 MG TABLET PO SCH ×2 (09:00→21:34)
[2022-02-24] MEDS ORDERED: ACETAMINOPHEN TAB 650MG DOSE (2X325MG) PO PRN (10:15)
[2022-02-24] MEDS ORDERED: ACETAMINOPHEN 500 MG TAB PO ONE (10:15)
[2022-02-24] MEDS: LIDOCAINE 5% (LIDODERM) PATCH TD SCH (10:46)
[2022-02-24 14:58] LABS: HEMATOCRIT 30.5 % (42.0-52.0); HEMOGLOBIN 9.4 g/dl (13.5-17.5)
[2022-02-24] MEDS ORDERED: LevoFLOXacin 500 MG TABLET PO SCH (18:00)
[2022-02-24] MEDS ORDERED: **NOTE PATIENT COMMENT** MISC XX SCH (21:00)
[2022-02-24] MEDS: SIMVASTATIN 40 MG TAB PO SCH (21:34)
[2022-02-25 05:50] LABS: HEMATOCRIT 26.8 % (42.0-52.0); HEMOGLOBIN 8.4 g/dl (13.5-17.5); MEAN CORPUSCULAR HEMOGLOBIN 27.5 pg (27.0-33.0); MEAN CORPUSCULAR HGB CONC 31.3 g/dl (32.0-36.5); MEAN CORPUSCULAR VOLUME 87.6 fl (80.0-96.0); PLATELET COUNT, AUTOMATED 374 10^3/uL (150-450); RED BLOOD COUNT 3.06 10^6/uL (4.30-6.10); WHITE BLOOD COUNT 9.9 10^3/uL (4.0-10.0)
[2022-02-25 06:00] VITALS: BP 140/67
[2022-02-25 06:21] LABS: BLOOD UREA NITROGEN 10 MG/DL (7-18); CALCIUM LEVEL 8.8 MG/DL (8.8-10.2); CARBON DIOXIDE LEVEL 30 MEQ/L (21-32); CHLORIDE LEVEL 105 MEQ/L (98-107); CREATININE FOR GFR 1.02 MG/DL (0.70-1.30); FERRITIN 238 NG/ML (26-388); GLOMERULAR FILTRATION RATE > 60.0 (>42); GLUCOSE, FASTING 123 MG/DL (70-100); IRON (FE) 43 UG/DL (65-175); PERCENT SATURATION 21.7 % (19.7-50.0); POTASSIUM SERUM 4.4 MEQ/L (3.5-5.1); SODIUM LEVEL 140 MEQ/L (136-145); TOTAL IRON BINDING CAPACITY 198 UG/DL (250-450)
[2022-02-25 08:59] VITALS: BP 148/71
[2022-02-25] MEDS: METOPROLOL TART 25 MG TABLET PO SCH (08:59)
[2022-02-25] MEDS: PANTOPRAZOLE 40MG TAB (PROTONIX) PO SCH (08:59)
[2022-02-25] MEDS: ENOXAPARIN 40MG/0.4ML SYRINGE (J1650 PER 10MG) SC SCH (09:00)
[2022-02-25] MEDS: LIDOCAINE 5% (LIDODERM) PATCH TD SCH (09:01)
[2022-02-25] MEDS: INSULIN LISPRO (NovoLOG) PER UNIT SC SCH ×2 (09:02→12:00)
[2022-02-25] MEDS ORDERED: LEVO1TAB39 PO (10:05)
[2022-02-25] MEDS ORDERED: BACI1CAP PO (10:05)
[2022-02-25] MEDS ORDERED: CYANOCOBALAMIN 1,000MCG/ML VIAL (J3420) IM ONE (13:25)
[2022-02-25] MEDS ORDERED: VITAMIN B12 IM ONE (14:00)
== END 2022-02-25 13:57 | disposition home or self-care (01) | DRG 662 ==
LOC: EDBD 11:52 → M ED 11:52 → EEVIPCON 17:53 → M ED INP 17:53 → ENRESERV 21:49 → M PCU 23:53 → M MSPAV 02-24 16:38
PROVIDERS: ADMIT Family Medicine; ATTEND General Practice
PROC: 0WP Anatomical Regions, General, Removal (ICD-10-PCS; 2022-02-21)
PROC: 0VP Male Reproductive System, Removal (ICD-10-PCS; 2022-02-21)
PROC: 30233N1 Transfusion of Nonautologous Red Blood Cells into Peripheral Vein, Percutaneous Approach (ICD-10-PCS; 2022-02-21)
PROC: 0TQD0ZZ Repair Urethra, Open Approach (ICD-10-PCS; principal; 2022-02-21 08:30)
DX: T83.591A Infection and inflammatory reaction due to implanted urinary sphincter, initial encounter (principal); A41.9 Sepsis, unspecified organism; N13.30 Unspecified hydronephrosis; N17.9 Acute kidney failure, unspecified; N34.0 Urethral abscess; C79.51 Secondary malignant neoplasm of bone; N39.0 Urinary tract infection, site not specified; E78.5 Hyperlipidemia, unspecified; D64.9 Anemia, unspecified; E87.5 Hyperkalemia; E11.9 Type 2 diabetes mellitus without complications; I10 Essential (primary) hypertension; R33.9 Retention of urine, unspecified; I25.10 Atherosclerotic heart disease of native coronary artery without angina pectoris; B96.29 Other Escherichia coli [E. coli] as the cause of diseases classified elsewhere; Z79.899 Other long term (current) drug therapy; C61 Malignant neoplasm of prostate; Z79.82 Long term (current) use of aspirin; Y83.1 Surgical operation with implant of artificial internal device as the cause of abnormal reaction of the patient, or of later complication, without mention of misadventure at the time of the procedure

== ENCOUNTER → 2022-03-09 | Outpatient (CLI) | payer MEDICARE ==
[~2022-03-09] MED LIST changes: +B-12100021 PO; +BACI1CAP PO; +CASO50TA5 PO; +GABA-282 PO; +HYDR50TAB PO; +ISOVUE-300 61% 50ML VIAL As Ordered ONE; +LEVO1TAB39 PO; +MIRA3350 PO; +NEXI20TA PO; +OXYB5TAB10; +POLY17PO10 PO; +TRAM50TA2 PO; +ZOCO80TA
== END ==
LOC: M RADPRO 09:42
PROVIDERS: ATTEND Specialist
DX: T83.111 Breakdown (mechanical) of implanted urinary sphincter (principal)
CPT/HCPCS: 51610; Q9967

== ENCOUNTER → 2022-04-16 | Outpatient (CLI) | payer MEDICARE, OTHER ==
[~2022-04-16] MED LIST changes: +GABA-283 PO; -ISOVUE-300 61% 50ML VIAL As Ordered ONE; +KRIL1CAP PO; -KRIL1CAP7 PO; +LIDO1ADH10 TP
== END ==
LOC: M RAD 09:59
PROVIDERS: ATTEND Urology
DX: C79.51 Secondary malignant neoplasm of bone (principal); C61 Malignant neoplasm of prostate
CPT/HCPCS: 78306; A9503

== ENCOUNTER → 2022-05-08 | Outpatient (CLI) | payer MEDICARE ==
[~2022-05-08] MED LIST changes: +BICA50TA9 PO; +COLA100C5 PO; +LIDO1PAD TOP; +MAXZTAB PO; +OXYB-54 PO; +ZOCO80TA PO
[2022-05-08 15:43] LABS: HEMATOCRIT 38.9 % (42.0-52.0); HEMOGLOBIN 12.1 g/dl (13.5-17.5); MEAN CORPUSCULAR HEMOGLOBIN 26.6 pg (27.0-33.0); MEAN CORPUSCULAR HGB CONC 31.1 g/dl (32.0-36.5); MEAN CORPUSCULAR VOLUME 85.5 fl (80.0-96.0); PLATELET COUNT, AUTOMATED 250 10^3/uL (150-450); RED BLOOD COUNT 4.55 10^6/uL (4.30-6.10); WHITE BLOOD COUNT 7.2 10^3/uL (4.0-10.0)
[2022-05-08 15:58] LABS: INR 1.02; PROTHROMBIN TIME 13.6 SECONDS (12.5-14.5)
[2022-05-08 16:09] LABS: ALBUMIN 3.9 G/DL (3.2-5.2); ALKALINE PHOSPHATASE 313 U/L (46-116); ALT/SGPT 19 U/L (7.0-40); AST/SGOT 42 U/L (<34); BILIRUBIN,TOTAL 0.4 MG/DL (0.3-1.2); BLOOD UREA NITROGEN 28 MG/DL (9-23); CALCIUM LEVEL 7.5 MG/DL (8.3-10.6); CARBON DIOXIDE LEVEL 27 MMOL/L (20-31); CHLORIDE LEVEL 95 MMOL/L (98-107); CREATININE FOR GFR 1.17 MG/DL (0.70-1.30); GLOMERULAR FILTRATION RATE > 60.0 (>42); GLUCOSE, FASTING 129 MG/DL (74-106); POTASSIUM SERUM 4.1 MMOL/L (3.5-5.1); SODIUM LEVEL 131 MMOL/L (136-145); TOTAL PROTEIN 7.2 G/DL (5.7-8.2)
== END ==
LOC: M RAD 14:54
PROVIDERS: ATTEND Urology
DX: C61 Malignant neoplasm of prostate (principal)

== ENCOUNTER → 2022-05-12 | Outpatient (REF) | payer OTHER, MEDICARE | LOC: M SMT 16:56 | PROVIDERS: ATTEND Urology | DX: C61 Malignant neoplasm of prostate (principal); Z96.0 Presence of urogenital implants ==

== ENCOUNTER → 2022-05-18 | Outpatient (CLI) | payer MEDICARE, OTHER | LOC: M LABSMTC 10:49 | PROVIDERS: ATTEND Anesthesiology | DX: Z01.812 Encounter for preprocedural laboratory examination (principal); Z20.822 Contact with and (suspected) exposure to COVID-19 ==

== ENCOUNTER 2022-05-21 07:44 | Day surgery (SDC) | payer MEDICARE, OTHER ==
[~2022-05-21] VITALS: Ht 167.6 cm; Wt 81.1 kg
[~2022-05-21 07:44] MED LIST changes: +LIDOCAINE 2% 100MG/5ML SDV (FOR ANES.) As Ordered ONE; +ceFAZolin SOD 2 GM in IV 1 EA IV ONE
[2022-05-21] MEDS ORDERED: LR 1,000 ML IV SCH (08:05)
[2022-05-21] MEDS ORDERED: ONDANSETRON 4MG 2ML VIAL As Ordered ONE (08:06)
[2022-05-21] MEDS ORDERED: fentaNYL 100 MCG/2 ML INJECTION As Ordered ONE (08:06)
[2022-05-21] MEDS ORDERED: propofoL 200 MG/20 ML VIAL As Ordered ONE (08:06)
[2022-05-21] MEDS ORDERED: LIDOCAINE 1% SDV 30ML VIAL As Ordered ONE (09:25)
[2022-05-21] MEDS ORDERED: FLUCONAZOLE 200 MG in IV 1 EA IV ONE (09:45)
[2022-05-21] MEDS ORDERED: ceFAZolin 1GM VIAL As Ordered ONE (10:46)
[2022-05-21] MEDS ORDERED: ceFAZolin 2 GM/D5W 50 ML IV BAG As Ordered ONE (10:47)
[2022-05-21] MEDS ORDERED: fentaNYL 100 MCG/2 ML INJECTION IV PRN (10:50)
[2022-05-21] MEDS ORDERED: ONDANSETRON 4MG 2ML VIAL IV PRN (10:50)
[2022-05-21] MEDS ORDERED: oxyCODONE 5MG TAB PO PRN (10:50)
[2022-05-21] MEDS ORDERED: ACETAMINOPHEN 1000MG 100ML IV BAG As Ordered ONE (10:59)
[2022-05-21] MEDS ORDERED: HYDR-3713 PO (11:17)
[2022-05-21] MEDS ORDERED: CEPH500C PO (11:17)
[2022-05-21] MEDS ORDERED: FLUC10TA PO (11:17)
[2022-05-21 13:15] VITALS: BP 152/69
== END 2022-05-21 13:15 | disposition home or self-care (01) ==
LOC: M SDC 07:44
PROVIDERS: ATTEND Urology
DX: R33.9 Retention of urine, unspecified (principal); R32 Unspecified urinary incontinence; I25.2 Old myocardial infarction; E11.9 Type 2 diabetes mellitus without complications; G47.30 Sleep apnea, unspecified; I10 Essential (primary) hypertension; C61 Malignant neoplasm of prostate; Z92.21 Personal history of antineoplastic chemotherapy; Z92.3 Personal history of irradiation; Z98.61 Coronary angioplasty status; Z79.899 Other long term (current) drug therapy; Z79.4 Long term (current) use of insulin; Z79.82 Long term (current) use of aspirin; Z96.0 Presence of urogenital implants; Z86.73 Personal history of transient ischemic attack (TIA), and cerebral infarction without residual deficits; Z87.891 Personal history of nicotine dependence; K21.9 Gastro-esophageal reflux disease without esophagitis
CPT/HCPCS: 51040; J0131; J0690; J1100; J2405; J3010

== ENCOUNTER → 2022-06-04 | Outpatient (CLI) | payer MEDICARE, OTHER ==
[~2022-06-04] VITALS: Ht 167.6 cm; Wt 82.1 kg
[~2022-06-04] MED LIST changes: +CEPH500C PO; +FLUC10TA PO; +HYDR-3713 PO; +HYDR-4429 PO; +LIDO5DIS41 TOP; -LIDOCAINE 2% 100MG/5ML SDV (FOR ANES.) As Ordered ONE; -ceFAZolin SOD 2 GM in IV 1 EA IV ONE
[2022-06-04 13:25] VITALS: BP 136/68
== END ==
LOC: M PAL 13:21
PROVIDERS: ATTEND Nurse Practitioner Adult Health
DX: C61 Malignant neoplasm of prostate (principal); C79.51 Secondary malignant neoplasm of bone; E11.9 Type 2 diabetes mellitus without complications; G89.3 Neoplasm related pain (acute) (chronic); G62.9 Polyneuropathy, unspecified; I10 Essential (primary) hypertension; M25.511 Pain in right shoulder; M25.512 Pain in left shoulder; M25.552 Pain in left hip; R29.6 Repeated falls; R54 Age-related physical debility; R41.3 Other amnesia; R41.89 Other symptoms and signs involving cognitive functions and awareness; Z79.899 Other long term (current) drug therapy; Z79.891 Long term (current) use of opiate analgesic; Z51.5 Encounter for palliative care; Z79.4 Long term (current) use of insulin; Z80.42 Family history of malignant neoplasm of prostate

== ENCOUNTER → 2022-06-10 | Outpatient (CLI) | payer MEDICARE ==
[~2022-06-10] MED LIST changes: +LASI20TA3 PO
== END ==
LOC: M ONCR 13:11
PROVIDERS: ATTEND General Practice
DX: C61 Malignant neoplasm of prostate (principal); C79.51 Secondary malignant neoplasm of bone; E11.9 Type 2 diabetes mellitus without complications; G62.9 Polyneuropathy, unspecified; I10 Essential (primary) hypertension; I25.2 Old myocardial infarction; M54.50 Low back pain, unspecified; M25.511 Pain in right shoulder; R53.83 Other fatigue; Z79.4 Long term (current) use of insulin; Z79.891 Long term (current) use of opiate analgesic; Z79.899 Other long term (current) drug therapy; Z80.42 Family history of malignant neoplasm of prostate; Z80.9 Family history of malignant neoplasm, unspecified; Z79.60 Long term (current) use of unspecified immunomodulators and immunosuppressants

== ENCOUNTER 2022-07-06 09:15 | Outpatient (RCR) | payer OTHER ==
[~2022-07-06 09:15] MED LIST changes: +ONDA-83 PO
[2022-07-07] MEDS ORDERED: LASI20TA3 PO ×2 (09:09→17:37)
[2022-07-14] MEDS ORDERED: ROSU20TA5 PO (13:15)
[2022-07-14] MEDS ORDERED: HYDR-3713 PO (16:52)
== END 2022-07-14 ==
LOC: M ONCR 09:15
PROVIDERS: ATTEND General Practice
DX: C79.51 Secondary malignant neoplasm of bone (principal); C61 Malignant neoplasm of prostate

== ENCOUNTER → 2022-07-14 | Outpatient (CLI) | payer MEDICARE, OTHER ==
[~2022-07-14] VITALS: Ht 167.6 cm; Wt 79.7 kg
[~2022-07-14] MED LIST changes: +ROSU20TA5 PO
[2022-07-14 13:10] VITALS: BP 135/71
== END ==
LOC: M PAL 13:02
PROVIDERS: ATTEND Nurse Practitioner Adult Health
DX: C61 Malignant neoplasm of prostate (principal); C79.51 Secondary malignant neoplasm of bone; E11.9 Type 2 diabetes mellitus without complications; G89.3 Neoplasm related pain (acute) (chronic); G62.9 Polyneuropathy, unspecified; I10 Essential (primary) hypertension; M25.511 Pain in right shoulder; R29.6 Repeated falls; R54 Age-related physical debility; R41.3 Other amnesia; R41.89 Other symptoms and signs involving cognitive functions and awareness; Z51.5 Encounter for palliative care; Z79.899 Other long term (current) drug therapy; Z79.891 Long term (current) use of opiate analgesic; Z79.4 Long term (current) use of insulin; Z80.42 Family history of malignant neoplasm of prostate

== ENCOUNTER → 2022-09-03 | Outpatient (REF) | payer MEDICARE, OTHER ==
[2022-09-03 19:10] LABS: APPEARANCE, URINE CLOUDY (CLEAR); BACTERIA, URINE AUTO 1+ (NEGATIVE); BILIRUBIN, URINE AUTO NEGATIVE (NEGATIVE); BLOOD, URINE BLOOD 3+ (NEGATIVE); COLOR, URINE AMBER (YELLOW); GLUCOSE, URINE (UA) AUTO NEGATIVE (NEGATIVE); KETONE, URINE AUTO NEGATIVE (NEGATIVE); LEUKOCYTE ESTERASE, URINE AUTO 3+ (NEGATIVE); NITRITE, URINE AUTO NEGATIVE (NEGATIVE); PROTEIN, URINE AUTO 2+ mg/dL (NEGATIVE); RBC, URINE AUTO TNTC /HPF (0-3); SPECIFIC GRAVITY URINE AUTO 1.014 (1.002-1.035); SQUAMOUS EPITHELIAL CELL UR AU 4 /HPF (0-6); UROBILINOGEN, URINE AUTO 0.2 mg/dL (0.0-2.0); WBC, URINE AUTO TNTC /HPF (0-3)
== END ==
LOC: M SMT 17:59
PROVIDERS: ATTEND Urology
DX: Z43.5 Encounter for attention to cystostomy (principal)

== ENCOUNTER → 2022-09-10 | Outpatient (CLI) | payer MEDICARE, OTHER ==
[~2022-09-10] VITALS: Ht 167.6 cm; Wt 85.9 kg
[2022-09-10 13:11] VITALS: BP 144/60
== END ==
LOC: M PAL 13:03
PROVIDERS: ATTEND Nurse Practitioner Adult Health
DX: C61 Malignant neoplasm of prostate (principal); C79.51 Secondary malignant neoplasm of bone; G62.9 Polyneuropathy, unspecified; G89.3 Neoplasm related pain (acute) (chronic); I25.2 Old myocardial infarction; R13.10 Dysphagia, unspecified; R29.6 Repeated falls; R41.89 Other symptoms and signs involving cognitive functions and awareness; R60.0 Localized edema; R68.2 Dry mouth, unspecified; Z79.4 Long term (current) use of insulin; Z79.899 Other long term (current) drug therapy; Z80.42 Family history of malignant neoplasm of prostate; Z92.3 Personal history of irradiation

== ENCOUNTER 2022-09-29 04:05 | Emergency (ER) | payer MEDICARE ==
[~2022-09-29] VITALS: Ht 167.6 cm; Wt 83.2 kg
[2022-09-29 07:19] LABS: BASO # 0.1 10^3/uL (0.0-0.2); BASO % 0.6 % (0.0-1.0); EOS # 0.5 10^3/uL (0.0-0.5); EOS % 6.1 % (0.0-3.0); HEMATOCRIT 44.1 % (42.0-52.0); HEMOGLOBIN 14.2 g/dl (13.5-17.5); LYMPH # 0.5 10^3/uL (1.5-5.0); LYMPH % 5.4 % (24.0-44.0); MEAN CORPUSCULAR HEMOGLOBIN 30.6 pg (27.0-33.0); MEAN CORPUSCULAR HGB CONC 32.2 g/dl (32.0-36.5); MONO # 0.7 10^3/uL (0.0-0.8); MONO % 7.6 % (2.0-8.0); NEUTROPHILS # 6.9 10^3/uL (1.5-8.5); PLATELET COUNT, AUTOMATED 253 10^3/uL (150-450); RED BLOOD COUNT 4.64 10^6/uL (4.30-6.10); WHITE BLOOD COUNT 8.6 10^3/uL (4.0-10.0)
[2022-09-29 07:27] LABS: CK-MB VALUE MASS < 1.0 NG/ML (<3.6); LIPASE 21 U/L (12-53)
[2022-09-29 07:31] LABS: THYROID STIMULATING HORMONE 1.395 uIU/ML (0.55-4.78)
[2022-09-29 07:37] LABS: ALBUMIN 4.1 G/DL (3.2-5.2); ALKALINE PHOSPHATASE 145 U/L (46-116); ALT/SGPT 26 U/L (7.0-40); AST/SGOT 32 U/L (<34); BILIRUBIN,DIRECT 0.2 MG/DL (<0.4); BILIRUBIN,TOTAL 0.5 MG/DL (0.3-1.2); BLOOD UREA NITROGEN 15 MG/DL (9-23); CALCIUM LEVEL 8.1 MG/DL (8.3-10.6); CARBON DIOXIDE LEVEL 27 MMOL/L (20-31); CHLORIDE LEVEL 105 MMOL/L (98-107); CPK CREATINE PHOSPHOKINASE 81 U/L (46-171); CREATININE FOR GFR 0.98 MG/DL (0.70-1.30); GLOMERULAR FILTRATION RATE > 60.0 (>42); GLUCOSE, FASTING 156 MG/DL (74-106); MB/CK RELATIVE INDEX 1.23 (< OR =4); POTASSIUM SERUM 4.9 MMOL/L (3.5-5.1); SODIUM LEVEL 139 MMOL/L (136-145); TOTAL PROTEIN 7.2 G/DL (5.7-8.2)
[2022-09-29] MEDS ORDERED: NORCO, ANEXSIA 5/325MG TABLET (HYDROcodone/ACETAMINOPHEN) PO ONE (08:40)
[2022-09-29] MEDS ORDERED: ISOVUE-370 76% 100ML VIAL As Ordered ONE (08:58)
[2022-09-29 10:22] LABS: CPK CREATINE PHOSPHOKINASE 66 U/L (46-171)
[2022-09-29 10:26] LABS: CK-MB VALUE MASS < 1.0 NG/ML (<3.6); MB/CK RELATIVE INDEX 1.51 (< OR =4)
[2022-09-29 11:25] LABS: CK-MB VALUE MASS < 1.0 NG/ML (<3.6)
[2022-09-29 11:33] LABS: CPK CREATINE PHOSPHOKINASE 61 U/L (46-171); MB/CK RELATIVE INDEX 1.63 (< OR =4)
[2022-09-29 12:55] VITALS: BP 153/74
== END 2022-09-29 13:05 | disposition home or self-care (01) ==
LOC: M ED 04:05
DX: R07.9 Chest pain, unspecified (principal); I45.10 Unspecified right bundle-branch block; I10 Essential (primary) hypertension; Z79.811 Long term (current) use of aromatase inhibitors; Z79.810 Long term (current) use of selective estrogen receptor modulators (SERMs); Z79.83 Long term (current) use of bisphosphonates; Z79.899 Other long term (current) drug therapy
CPT/HCPCS: 36415; 71046; 71275; 80048; 80076; 81001; 82550; 82553; 83690; 84439; 84443; 84484; 85025; 87088; 87186; 93005; 94760; 99284; Q9967

== ENCOUNTER → 2022-10-06 | Outpatient (CLI) | payer MEDICARE, OTHER | LOC: M ONCR 10:43 | PROVIDERS: ATTEND General Practice | DX: C61 Malignant neoplasm of prostate (principal); C79.51 Secondary malignant neoplasm of bone; Z79.4 Long term (current) use of insulin; Z79.818 Long term (current) use of other agents affecting estrogen receptors and estrogen levels; Z79.899 Other long term (current) drug therapy; Z92.3 Personal history of irradiation ==

== ENCOUNTER 2022-10-09 14:02 | Outpatient (RCR) | payer MEDICARE, OTHER | END 2022-10-11 | LOC: M ONCR 14:02 | PROVIDERS: ATTEND General Practice | DX: C61 Malignant neoplasm of prostate (principal); C79.51 Secondary malignant neoplasm of bone ==

== ENCOUNTER 2022-10-27 13:48 | Outpatient (RCR) | payer OTHER ==
[2022-11-02] MEDS ORDERED: AMLO1TAB24 PO (15:58)
[2022-11-02] MEDS ORDERED: ROSU20TA5 PO (15:58)
[2022-11-02] MEDS ORDERED: LANTINJ4 SC (15:58)
[2022-11-03] MEDS ORDERED: AMLO1TAB24 PO (07:48)
[2022-11-03] MEDS ORDERED: ROSU20TA5 PO (07:48)
[2022-11-05] MEDS ORDERED: GLOB31MI SC (11:24)
[2022-11-10] MEDS ORDERED: HYDR-3713 PO (10:14)
[2022-11-12] MEDS ORDERED: HYDR-3713 PO (14:07)
== END 2022-11-11 ==
LOC: M ONCR 13:48
PROVIDERS: ATTEND General Practice
DX: C61 Malignant neoplasm of prostate (principal); C79.51 Secondary malignant neoplasm of bone

== ENCOUNTER → 2022-11-12 | Outpatient (CLI) | payer MEDICARE, OTHER ==
[~2022-11-12] VITALS: Ht 167.6 cm; Wt 82.2 kg
[~2022-11-12] MED LIST changes: +GLOB31MI SC
[2022-11-12 13:18] VITALS: BP 170/75
== END ==
LOC: M PAL 13:06
PROVIDERS: ATTEND Nurse Practitioner Adult Health
DX: C61 Malignant neoplasm of prostate (principal); C79.51 Secondary malignant neoplasm of bone; Z51.5 Encounter for palliative care; Z92.21 Personal history of antineoplastic chemotherapy; Z92.3 Personal history of irradiation; G89.3 Neoplasm related pain (acute) (chronic); R60.0 Localized edema; R41.89 Other symptoms and signs involving cognitive functions and awareness; R13.10 Dysphagia, unspecified; K11.7 Disturbances of salivary secretion; R53.83 Other fatigue; R63.0 Anorexia; Z80.8 Family history of malignant neoplasm of other organs or systems; Z80.42 Family history of malignant neoplasm of prostate; Z79.4 Long term (current) use of insulin; Z79.891 Long term (current) use of opiate analgesic; Z79.899 Other long term (current) drug therapy; Z96.0 Presence of urogenital implants

== ENCOUNTER → 2022-11-26 | Outpatient (REF) | payer OTHER ==
[~2022-11-26] MED LIST changes: -ROSU20TA5 PO; +ROSU20TA61 PO
[2022-11-26 18:20] LABS: APPEARANCE, URINE HAZY (CLEAR); BACTERIA, URINE AUTO NEGATIVE (NEGATIVE); BILIRUBIN, URINE AUTO NEGATIVE (NEGATIVE); BLOOD, URINE BLOOD 3+ (NEGATIVE); COLOR, URINE RED (YELLOW); GLUCOSE, URINE (UA) AUTO NEGATIVE (NEGATIVE); KETONE, URINE AUTO NEGATIVE (NEGATIVE); LEUKOCYTE ESTERASE, URINE AUTO 2+ (NEGATIVE); NITRITE, URINE AUTO NEGATIVE (NEGATIVE); PROTEIN, URINE AUTO 2+ mg/dL (NEGATIVE); RBC, URINE AUTO TNTC /HPF (0-3); SPECIFIC GRAVITY URINE AUTO 1.012 (1.002-1.035); SQUAMOUS EPITHELIAL CELL UR AU 1 /HPF (0-6); TRANSITIONAL EPITHELIAL AUTO 4 /HPF; UROBILINOGEN, URINE AUTO 0.2 mg/dL (0.0-2.0); WBC, URINE AUTO TNTC /HPF (0-3)
== END ==
LOC: M SMT 17:28
PROVIDERS: ATTEND Physician Assistant
DX: R30.0 Dysuria (principal)

== ENCOUNTER → 2023-01-05 | Outpatient (REF) | payer OTHER ==
[2023-01-05 19:22] LABS: APPEARANCE, URINE HAZY (CLEAR); BACTERIA, URINE AUTO 1+ (NEGATIVE); BILIRUBIN, URINE AUTO NEGATIVE (NEGATIVE); BLOOD, URINE BLOOD 3+ (NEGATIVE); COLOR, URINE YELLOW (YELLOW); GLUCOSE, URINE (UA) AUTO NEGATIVE (NEGATIVE); GRANULAR CAST, URINE AUTO 3 /LPF; KETONE, URINE AUTO NEGATIVE (NEGATIVE); LEUKOCYTE ESTERASE, URINE AUTO 3+ (NEGATIVE); MUCUS, URINE SMALL (NEGATIVE); NITRITE, URINE AUTO NEGATIVE (NEGATIVE); PROTEIN, URINE AUTO 1+ mg/dL (NEGATIVE); RBC, URINE AUTO 6 /HPF (0-3); SPECIFIC GRAVITY URINE AUTO 1.004 (1.002-1.035); SQUAMOUS EPITHELIAL CELL UR AU 0 /HPF (0-6); UROBILINOGEN, URINE AUTO 0.2 mg/dL (0.0-2.0); WBC, URINE AUTO 63 /HPF (0-3)
== END ==
LOC: M SMT 16:55
PROVIDERS: ATTEND Urology
DX: R30.0 Dysuria (principal)

== ENCOUNTER → 2023-01-27 | Outpatient (CLI) | payer MEDICARE, OTHER ==
[~2023-01-27] MED LIST changes: -GABA-283 PO; +GABA-284 PO
== END ==
LOC: M ONCR 14:24
PROVIDERS: ATTEND General Practice
DX: C79.51 Secondary malignant neoplasm of bone (principal); C61 Malignant neoplasm of prostate; Z71.2 Person consulting for explanation of examination or test findings; Z79.4 Long term (current) use of insulin; Z79.818 Long term (current) use of other agents affecting estrogen receptors and estrogen levels; Z79.899 Other long term (current) drug therapy; Z92.21 Personal history of antineoplastic chemotherapy; Z92.3 Personal history of irradiation; Z96.0 Presence of urogenital implants

== ENCOUNTER 2023-02-05 13:55 | Outpatient (RCR) | payer MEDICARE, OTHER | END 2023-02-11 | LOC: M ONCR 13:55 | PROVIDERS: ATTEND General Practice | DX: Z51.0 Encounter for antineoplastic radiation therapy (principal); C79.51 Secondary malignant neoplasm of bone; C61 Malignant neoplasm of prostate ==

== ENCOUNTER → 2023-05-26 | Outpatient (CLI) | payer OTHER, MEDICARE ==
[~2023-05-26] MED LIST changes: +DICL100G10 TOP; -OXYB5TAB10; +OXYB5TAB11; +OXYC-517 PO
== END ==
LOC: M ONCR 13:43
PROVIDERS: ATTEND General Practice
DX: C79.51 Secondary malignant neoplasm of bone (principal); C61 Malignant neoplasm of prostate; G25.2 Other specified forms of tremor; R26.89 Other abnormalities of gait and mobility; R29.6 Repeated falls; Z71.2 Person consulting for explanation of examination or test findings; Z79.4 Long term (current) use of insulin; Z79.818 Long term (current) use of other agents affecting estrogen receptors and estrogen levels; Z79.899 Other long term (current) drug therapy; Z92.3 Personal history of irradiation; Z96.0 Presence of urogenital implants

== ENCOUNTER → 2023-07-09 | Outpatient (CLI) | payer MEDICARE, OTHER ==
[~2023-07-09] MED LIST changes: +GASTROGRAFIN SOLUTION 30ML As Ordered ONE; +ISOVUE-370 76% 100ML VIAL As Ordered ONE
== END ==
LOC: M RAD 09:27
PROVIDERS: ATTEND Internal Medicine Medical Oncology
DX: C61 Malignant neoplasm of prostate (principal); K80.20 Calculus of gallbladder without cholecystitis without obstruction; N28.1 Cyst of kidney, acquired; C79.51 Secondary malignant neoplasm of bone
CPT/HCPCS: 71260; 74177; 78306; A9503; Q9963; Q9967

== ENCOUNTER 2023-08-04 07:00 | Emergency (ER) | payer OTHER, MEDICARE ==
[~2023-08-04] VITALS: Ht 170.2 cm; Wt 81.8 kg
[~2023-08-04 07:00] MED LIST changes: -GASTROGRAFIN SOLUTION 30ML As Ordered ONE; -ISOVUE-370 76% 100ML VIAL As Ordered ONE; -MIRA1POW3 PO; +MIRA33506 PO; -OXYB5TAB11; +OXYB5TAB14; +XTAN40CA PO
[2023-08-04 07:59] LABS: BASO # 0.1 10^3/uL (0.0-0.2); BASO % 0.7 % (0.0-1.0); EOS # 0.5 10^3/uL (0.0-0.5); EOS % 6.4 % (0.0-3.0); HEMATOCRIT 41.6 % (42.0-52.0); HEMOGLOBIN 13.5 g/dl (13.5-17.5); LYMPH # 0.5 10^3/uL (1.5-5.0); MEAN CORPUSCULAR HEMOGLOBIN 30.3 pg (27.0-33.0); MEAN CORPUSCULAR HGB CONC 32.5 g/dl (32.0-36.5); MEAN CORPUSCULAR VOLUME 93.5 fl (80.0-96.0); MONO # 0.5 10^3/uL (0.0-0.8); MONO % 6.9 % (2.0-8.0); NEUTROPHILS % 79.2 % (36.0-66.0); PLATELET COUNT, AUTOMATED 247 10^3/uL (150-450); RED BLOOD COUNT 4.45 10^6/uL (4.30-6.10); WHITE BLOOD COUNT 7.5 10^3/uL (4.0-10.0)
[2023-08-04 08:15] LABS: INR 0.96; PROTHROMBIN TIME 12.5 SECONDS (12.5-14.5)
[2023-08-04 08:28] LABS: LIPASE 22 U/L (12-53)
[2023-08-04 08:29] LABS: RSV AMPLIFICATION NEGATIVE (NEGATIVE)
[2023-08-04 08:31] LABS: ALBUMIN 3.4 G/DL (3.2-5.2); ALKALINE PHOSPHATASE 129 U/L (46-116); ALT/SGPT 16 U/L (7.0-40); AST/SGOT 16 U/L (<34); BILIRUBIN,DIRECT < 0.1 MG/DL (<0.4); BILIRUBIN,TOTAL 0.3 MG/DL (0.3-1.2); CK-MB VALUE MASS < 1.0 NG/ML (<3.6); TOTAL PROTEIN 6.4 G/DL (5.7-8.2)
[2023-08-04 08:33] LABS: CPK CREATINE PHOSPHOKINASE 54 U/L (46-171); MB/CK RELATIVE INDEX 1.85 (< OR =4)
[2023-08-04 09:15] VITALS: BP 151/71; O2SAT 95
[2023-08-04 09:50] VITALS: TEMP 96.8
== END 2023-08-04 09:53 | disposition home or self-care (01) ==
LOC: M ED 07:00
DX: R07.9 Chest pain, unspecified (principal); C41.9 Malignant neoplasm of bone and articular cartilage, unspecified; Z87.891 Personal history of nicotine dependence; Z79.899 Other long term (current) drug therapy; Z79.4 Long term (current) use of insulin

== ENCOUNTER → 2023-09-09 | Outpatient (CLI) | payer OTHER, MEDICARE ==
[~2023-09-09] MED LIST changes: +BUTR5DIS TOP
== END ==
LOC: M ONCR 14:03
PROVIDERS: ATTEND General Practice
DX: C61 Malignant neoplasm of prostate (principal); C79.51 Secondary malignant neoplasm of bone; C44.229 Squamous cell carcinoma of skin of left ear and external auricular canal; G20.A1 Parkinson's disease without dyskinesia, without mention of fluctuations; D23.22 Other benign neoplasm of skin of left ear and external auricular canal; D23.39 Other benign neoplasm of skin of other parts of face; Z79.4 Long term (current) use of insulin; Z79.899 Other long term (current) drug therapy; Z92.3 Personal history of irradiation
CPT/HCPCS: 10005; 88305; G0463

== ENCOUNTER 2023-10-08 12:42 | Outpatient (RCR) | payer OTHER, MEDICARE | END 2023-10-12 | LOC: M ONCR 12:42 | PROVIDERS: ATTEND General Practice | DX: Z51.0 Encounter for antineoplastic radiation therapy (principal); C44.219 Basal cell carcinoma of skin of left ear and external auricular canal ==

== ENCOUNTER → 2023-10-14 | Outpatient (CLI) | payer OTHER, MEDICARE ==
[2023-10-14] MEDS: XOFIGO(RADIUM-223 DICHLORIDE) 180UCI 6ML VL CHARGE IS PER UCI IV STA (15:44)
== END ==
LOC: M ONCR 14:46
PROVIDERS: ATTEND General Practice
DX: C61 Malignant neoplasm of prostate (principal); C79.51 Secondary malignant neoplasm of bone
CPT/HCPCS: 77300; 79101; A9606

== ENCOUNTER → 2023-11-11 | Outpatient (CLI) | payer OTHER, MEDICARE ==
[~2023-11-11] MED LIST changes: +BICA50TA4 PO; -BICA50TA9 PO; +XOFIGO(RADIUM-223 DICHLORIDE) 180UCI 6ML VL CHARGE IS PER UCI IV ONE; +XOFIGO(RADIUM-223 DICHLORIDE) 180UCI 6ML VL CHARGE IS PER UCI IV STA
[2023-11-11 15:58] LABS: BASO % 0.9 % (0.0-1.0); EOS # 0.3 10^3/uL (0.0-0.5); EOS % 9.3 % (0.0-3.0); HEMATOCRIT 38.7 % (42.0-52.0); HEMOGLOBIN 12.8 g/dl (13.5-17.5); LYMPH # 0.4 10^3/uL (1.5-5.0); LYMPH % 11.1 % (24.0-44.0); MEAN CORPUSCULAR HEMOGLOBIN 31.3 pg (27.0-33.0); MEAN CORPUSCULAR HGB CONC 33.1 g/dl (32.0-36.5); MEAN CORPUSCULAR VOLUME 94.6 fl (80.0-96.0); MONO # 0.4 10^3/uL (0.0-0.8); MONO % 10.5 % (2.0-8.0); NEUTROPHILS # 2.3 10^3/uL (1.5-8.5); NEUTROPHILS % 67.6 % (36.0-66.0); PLATELET COUNT, AUTOMATED 215 10^3/uL (150-450); RED BLOOD COUNT 4.09 10^6/uL (4.30-6.10); WHITE BLOOD COUNT 3.3 10^3/uL (4.0-10.0)
== END ==
LOC: M ONCR 15:39
PROVIDERS: ATTEND General Practice
DX: C61 Malignant neoplasm of prostate (principal); C79.51 Secondary malignant neoplasm of bone; C44.219 Basal cell carcinoma of skin of left ear and external auricular canal
CPT/HCPCS: 36415; 79101; 85025; A9606; G0463

== ENCOUNTER → 2023-12-09 | Outpatient (CLI) | payer OTHER, MEDICARE ==
[~2023-12-09] MED LIST changes: -XOFIGO(RADIUM-223 DICHLORIDE) 180UCI 6ML VL CHARGE IS PER UCI IV ONE; -XOFIGO(RADIUM-223 DICHLORIDE) 180UCI 6ML VL CHARGE IS PER UCI IV STA
[2023-12-09] MEDS: XOFIGO(RADIUM-223 DICHLORIDE) 180UCI 6ML VL CHARGE IS PER UCI IV STA (14:23)
== END ==
LOC: M ONCR 14:18
PROVIDERS: ATTEND General Practice
DX: C61 Malignant neoplasm of prostate (principal); C79.51 Secondary malignant neoplasm of bone
CPT/HCPCS: 79101; A9606

== ENCOUNTER → 2024-01-06 | Outpatient (CLI) | payer MEDICARE, OTHER ==
[2024-01-06] MEDS: XOFIGO(RADIUM-223 DICHLORIDE) 180UCI 6ML VL CHARGE IS PER UCI IV STA (16:42)
== END ==
LOC: M ONCR 16:27
PROVIDERS: ATTEND General Practice
DX: C61 Malignant neoplasm of prostate (principal); C79.51 Secondary malignant neoplasm of bone
CPT/HCPCS: 79101; A9606; G0463

== ENCOUNTER → 2024-02-03 | Outpatient (CLI) | payer MEDICARE, OTHER ==
[2024-02-03] MEDS: XOFIGO(RADIUM-223 DICHLORIDE) 180UCI 6ML VL CHARGE IS PER UCI IV STA (13:48)
== END ==
LOC: M ONCR 13:25
PROVIDERS: ATTEND General Practice
DX: C61 Malignant neoplasm of prostate (principal); C79.51 Secondary malignant neoplasm of bone; R15.9 Full incontinence of feces
CPT/HCPCS: 79101; A9606; G0463

== ENCOUNTER → 2024-02-11 | Outpatient (CLI) | payer MEDICARE, OTHER | LOC: M RAD 15:06 | PROVIDERS: ATTEND General Practice | DX: C79.51 Secondary malignant neoplasm of bone (principal); C61 Malignant neoplasm of prostate; N28.1 Cyst of kidney, acquired; K80.20 Calculus of gallbladder without cholecystitis without obstruction ==

== ENCOUNTER 2024-02-13 17:11 | Emergency (ER) | payer MEDICARE, OTHER ==
[~2024-02-13] VITALS: Ht 170.2 cm; Wt 80.9 kg
[2024-02-13 19:10] LABS: BASO % 0.7 % (0.0-1.0); EOS # 0.4 10^3/uL (0.0-0.5); EOS % 10.4 % (0.0-3.0); HEMATOCRIT 34.9 % (42.0-52.0); HEMOGLOBIN 11.6 g/dl (13.5-17.5); LYMPH # 0.3 10^3/uL (1.5-5.0); LYMPH % 6.3 % (24.0-44.0); MEAN CORPUSCULAR HEMOGLOBIN 31.3 pg (27.0-33.0); MEAN CORPUSCULAR HGB CONC 33.2 g/dl (32.0-36.5); MEAN CORPUSCULAR VOLUME 94.1 fl (80.0-96.0); MONO # 0.5 10^3/uL (0.0-0.8); MONO % 11.8 % (2.0-8.0); NEUTROPHILS # 2.9 10^3/uL (1.5-8.5); NEUTROPHILS % 70.1 % (36.0-66.0); PLATELET COUNT, AUTOMATED 181 10^3/uL (150-450); RED BLOOD COUNT 3.71 10^6/uL (4.30-6.10); WHITE BLOOD COUNT 4.2 10^3/uL (4.0-10.0)
[2024-02-13 19:30] LABS: BLOOD UREA NITROGEN 15 MG/DL (9-23); CALCIUM LEVEL 9.2 MG/DL (8.3-10.6); CARBON DIOXIDE LEVEL 28 MMOL/L (20-31); CHLORIDE LEVEL 105 MMOL/L (98-107); GLOMERULAR FILTRATION RATE > 60.0 (>42); GLUCOSE, FASTING 169 MG/DL (74-106); MAGNESIUM LEVEL 1.8 MG/DL (1.8-2.4); POTASSIUM SERUM 4.3 MMOL/L (3.5-5.1); SODIUM LEVEL 139 MMOL/L (136-145)
[2024-02-13 19:32] LABS: FREE T4 1.36 NG/DL (0.89-1.76); THYROID STIMULATING HORMONE 1.057 uIU/ML (0.55-4.78)
[2024-02-13 20:50] VITALS: BP 142/68; TEMP 97.6; O2SAT 94
== END 2024-02-13 21:00 | disposition home or self-care (01) ==
LOC: EDBD 17:11 → M ED 17:11
DX: S70.02XA Contusion of left hip, initial encounter (principal); C79.52 Secondary malignant neoplasm of bone marrow; W19.XXXA Unspecified fall, initial encounter; C61 Malignant neoplasm of prostate; M50.121 Cervical disc disorder at C4-C5 level with radiculopathy; M50.122 Cervical disc disorder at C5-C6 level with radiculopathy; M25.78 Osteophyte, vertebrae; M16.12 Unilateral primary osteoarthritis, left hip; I45.10 Unspecified right bundle-branch block; E11.9 Type 2 diabetes mellitus without complications; K21.9 Gastro-esophageal reflux disease without esophagitis; I10 Essential (primary) hypertension; E78.5 Hyperlipidemia, unspecified; I25.2 Old myocardial infarction; Z88.8 Allergy status to other drugs, medicaments and biological substances; Y92.122 Bedroom in nursing home as the place of occurrence of the external cause; Y93.89 Activity, other specified; Y99.9 Unspecified external cause status; Z79.4 Long term (current) use of insulin; Z79.899 Other long term (current) drug therapy; Z90.79 Acquired absence of other genital organ(s)

== ENCOUNTER → 2024-02-29 | Outpatient (REF) | payer OTHER, MEDICARE ==
[2024-02-29 14:30] LABS: HEMATOCRIT 32.4 % (42.0-52.0); HEMOGLOBIN 10.5 g/dl (13.5-17.5); MEAN CORPUSCULAR HGB CONC 32.4 g/dl (32.0-36.5); MEAN CORPUSCULAR VOLUME 95.6 fl (80.0-96.0); PLATELET COUNT, AUTOMATED 217 10^3/uL (150-450); RED BLOOD COUNT 3.39 10^6/uL (4.30-6.10); WHITE BLOOD COUNT 4.8 10^3/uL (4.0-10.0)
[2024-02-29 14:57] LABS: ALBUMIN 3.1 G/DL (3.2-5.2); ALKALINE PHOSPHATASE 88 U/L (46-116); ALT/SGPT < 9 U/L (7.0-40); AST/SGOT 24 U/L (<34); BILIRUBIN,TOTAL 0.7 MG/DL (0.3-1.2); BLOOD UREA NITROGEN 16 MG/DL (9-23); CALCIUM LEVEL 8.9 MG/DL (8.3-10.6); CARBON DIOXIDE LEVEL 31 MMOL/L (20-31); CHLORIDE LEVEL 102 MMOL/L (98-107); CHOLESTEROL LEVEL 101 MG/DL (<200); CREATININE FOR GFR 0.92 MG/DL (0.70-1.30); GLOMERULAR FILTRATION RATE > 60.0 (>42); GLUCOSE, FASTING 134 MG/DL (74-106); HDL CHOLESTEROL 31.5 MG/DL (>40); LDL CHOLESTEROL 47.1 MG/DL (<100); NON-HDL-C 69.5 MG/DL; POTASSIUM SERUM 4.4 MMOL/L (3.5-5.1); SODIUM LEVEL 138 MMOL/L (136-145); TOTAL PROTEIN 6.7 G/DL (5.7-8.2); TRIGLYCERIDES LEVEL 112 MG/DL (<150)
[2024-02-29 15:49] LABS: HEMOGLOBIN A1c 7.8 % (4.0-6.0)
== END ==
LOC: SKLAB5 07:00
PROVIDERS: ATTEND Internal Medicine
DX: E11.9 Type 2 diabetes mellitus without complications (principal); E78.5 Hyperlipidemia, unspecified; I10 Essential (primary) hypertension

== ENCOUNTER → 2024-03-02 | Outpatient (CLI) | payer OTHER, MEDICARE ==
[~2024-03-02] VITALS: Ht 170.2 cm; Wt 80.9 kg
[2024-03-02] MEDS: XOFIGO(RADIUM-223 DICHLORIDE) 180UCI 6ML VL CHARGE IS PER UCI IV STA (15:12)
== END ==
LOC: M ONCR 14:38
PROVIDERS: ATTEND General Practice
DX: C61 Malignant neoplasm of prostate (principal); C79.51 Secondary malignant neoplasm of bone
CPT/HCPCS: 79101; A9606; G0463

== ENCOUNTER → 2024-03-03 | Outpatient (REF) | payer OTHER, MEDICARE ==
[2024-03-03 10:06] LABS: HEMATOCRIT 31.1 % (42.0-52.0); HEMOGLOBIN 10.3 g/dl (13.5-17.5); MEAN CORPUSCULAR HEMOGLOBIN 31.6 pg (27.0-33.0); MEAN CORPUSCULAR HGB CONC 33.1 g/dl (32.0-36.5); MEAN CORPUSCULAR VOLUME 95.4 fl (80.0-96.0); PLATELET COUNT, AUTOMATED 199 10^3/uL (150-450); RED BLOOD COUNT 3.26 10^6/uL (4.30-6.10); WHITE BLOOD COUNT 4.4 10^3/uL (4.0-10.0)
[2024-03-03 10:34] LABS: ALKALINE PHOSPHATASE 94 U/L (46-116); ALT/SGPT 14 U/L (7.0-40); AST/SGOT 28 U/L (<34); BILIRUBIN,TOTAL 0.6 MG/DL (0.3-1.2); BLOOD UREA NITROGEN 17 MG/DL (9-23); CALCIUM LEVEL 8.9 MG/DL (8.3-10.6); CARBON DIOXIDE LEVEL 29 MMOL/L (20-31); CHLORIDE LEVEL 104 MMOL/L (98-107); GLOMERULAR FILTRATION RATE > 60.0 (>42); GLUCOSE, FASTING 192 MG/DL (74-106); SODIUM LEVEL 134 MMOL/L (136-145); TOTAL PROTEIN 6.6 G/DL (5.7-8.2)
== END ==
LOC: SKLAB5 09:01
PROVIDERS: ATTEND Internal Medicine
DX: C61 Malignant neoplasm of prostate (principal)

== ENCOUNTER → 2024-03-28 | Outpatient (REF) | payer MEDICARE, OTHER ==
[~2024-03-28] MED LIST changes: +ACET1TAB55 PO; +ASPI81TA26 PO; +BISA10SU27 PR; +BRIM0.2S13 OP; +CALC-423 PO; +CARB25TA9 PO; +DORZOLAMIDE HCL OS; +GABA-1172 PO; -GABA-282 PO; +GLUC1KIT IM; +MELA5CAP2 PO; +META28.32 PO; +OMEP-173 PO; +PREDOPD OS; -ROSU20TA61 PO; +ROSU20TA86 PO; +SENN-186 PO; +TIMOXEOPD OS
== END ==
LOC: SKLAB5 07:00
PROVIDERS: ATTEND Internal Medicine
DX: E55.9 Vitamin D deficiency, unspecified (principal)

== ENCOUNTER → 2024-05-04 | Outpatient (CLI) | payer MEDICARE, OTHER | LOC: M ONCR 09:03 | PROVIDERS: ATTEND General Practice | DX: C79.51 Secondary malignant neoplasm of bone (principal); C61 Malignant neoplasm of prostate; R97.21 Rising PSA following treatment for malignant neoplasm of prostate; Z79.818 Long term (current) use of other agents affecting estrogen receptors and estrogen levels; Z79.4 Long term (current) use of insulin; Z79.82 Long term (current) use of aspirin; Z79.891 Long term (current) use of opiate analgesic; Z79.899 Other long term (current) drug therapy; Z93.59 Other cystostomy status; Z88.8 Allergy status to other drugs, medicaments and biological substances; Z92.3 Personal history of irradiation ==

== ENCOUNTER → 2024-05-16 | Outpatient (REF) | payer SELFPAY ==
[2024-05-16 14:21] LABS: BASO % 0.7 % (0.0-1.0); EOS # 0.2 10^3/uL (0.0-0.5); EOS % 3.7 % (0.0-3.0); HEMATOCRIT 26.4 % (42.0-52.0); HEMOGLOBIN 8.1 g/dl (13.5-17.5); LYMPH # 0.2 10^3/uL (1.5-5.0); LYMPH % 5.3 % (24.0-44.0); MEAN CORPUSCULAR HEMOGLOBIN 30.7 pg (27.0-33.0); MEAN CORPUSCULAR HGB CONC 30.7 g/dl (32.0-36.5); MONO # 0.4 10^3/uL (0.0-0.8); MONO % 9.7 % (2.0-8.0); NEUTROPHILS # 3.5 10^3/uL (1.5-8.5); NEUTROPHILS % 77.5 % (36.0-66.0); PLATELET COUNT, AUTOMATED 151 10^3/uL (150-450); RED BLOOD COUNT 2.64 10^6/uL (4.30-6.10); WHITE BLOOD COUNT 4.6 10^3/uL (4.0-10.0)
[2024-05-16 14:38] LABS: BLOOD UREA NITROGEN 27 MG/DL (9-23); CALCIUM LEVEL 8.9 MG/DL (8.3-10.6); CARBON DIOXIDE LEVEL 26 MMOL/L (20-31); CHLORIDE LEVEL 96 MMOL/L (98-107); CREATININE FOR GFR 0.75 MG/DL (0.70-1.30); GLOMERULAR FILTRATION RATE > 60.0 (>42); GLUCOSE, FASTING 192 MG/DL (74-106); POTASSIUM SERUM 4.5 MMOL/L (3.5-5.1); SODIUM LEVEL 133 MMOL/L (136-145)
== END ==
LOC: SKLAB5 11:48
PROVIDERS: ATTEND Internal Medicine
DX: I10 Essential (primary) hypertension (principal)

== ENCOUNTER → 2024-05-17 | Outpatient (REF) | payer OTHER ==
[2024-05-17 12:33] LABS: BASO % 0.2 % (0.0-1.0); EOS # 0.2 10^3/uL (0.0-0.5); EOS % 2.4 % (0.0-3.0); HEMATOCRIT 23.7 % (42.0-52.0); HEMOGLOBIN 7.6 g/dl (13.5-17.5); LYMPH # 0.3 10^3/uL (1.5-5.0); LYMPH % 4.7 % (24.0-44.0); MEAN CORPUSCULAR HEMOGLOBIN 31.4 pg (27.0-33.0); MEAN CORPUSCULAR HGB CONC 32.1 g/dl (32.0-36.5); MEAN CORPUSCULAR VOLUME 97.9 fl (80.0-96.0); MONO # 0.6 10^3/uL (0.0-0.8); MONO % 9.1 % (2.0-8.0); NEUTROPHILS % 81.3 % (36.0-66.0); PLATELET COUNT, AUTOMATED 141 10^3/uL (150-450); RED BLOOD COUNT 2.42 10^6/uL (4.30-6.10); WHITE BLOOD COUNT 6.2 10^3/uL (4.0-10.0)
[2024-05-17 12:45] LABS: ALBUMIN 2.6 G/DL (3.2-5.2); ALKALINE PHOSPHATASE 115 U/L (40-129); ALT/SGPT < 9 U/L (7.0-40); AST/SGOT 47 U/L (<34); BILIRUBIN,TOTAL 0.7 MG/DL (0.3-1.2); BLOOD UREA NITROGEN 33 MG/DL (9-23); CALCIUM LEVEL 8.7 MG/DL (8.3-10.6); CARBON DIOXIDE LEVEL 28 MMOL/L (20-31); CHLORIDE LEVEL 96 MMOL/L (98-107); CREATININE FOR GFR 0.91 MG/DL (0.70-1.30); GLOMERULAR FILTRATION RATE > 60.0 (>42); GLUCOSE, FASTING 227 MG/DL (74-106); POTASSIUM SERUM 4.1 MMOL/L (3.5-5.1); SODIUM LEVEL 134 MMOL/L (136-145); TOTAL PROTEIN 6.1 G/DL (5.7-8.2)
== END ==
LOC: SKLAB5 11:04
PROVIDERS: ATTEND Internal Medicine
DX: R53.83 Other fatigue (principal); R50.9 Fever, unspecified

== ENCOUNTER → 2024-05-18 | Outpatient (REF) | payer SELFPAY | LOC: SKLAB5 05-17 15:15 | PROVIDERS: ATTEND Internal Medicine | DX: R50.9 Fever, unspecified (principal); R10.9 Unspecified abdominal pain ==

== ENCOUNTER → 2024-05-19 | Outpatient (REF) | payer OTHER ==
[2024-05-19 10:24] LABS: BASO % 0.3 % (0.0-1.0); EOS # 0.1 10^3/uL (0.0-0.5); EOS % 1.5 % (0.0-3.0); HEMATOCRIT 26.8 % (42.0-52.0); HEMOGLOBIN 8.8 g/dl (13.5-17.5); LYMPH # 0.3 10^3/uL (1.5-5.0); LYMPH % 4.9 % (24.0-44.0); MEAN CORPUSCULAR HEMOGLOBIN 31.3 pg (27.0-33.0); MEAN CORPUSCULAR HGB CONC 32.8 g/dl (32.0-36.5); MEAN CORPUSCULAR VOLUME 95.4 fl (80.0-96.0); MONO # 0.4 10^3/uL (0.0-0.8); MONO % 6.5 % (2.0-8.0); NEUTROPHILS # 5.8 10^3/uL (1.5-8.5); PLATELET COUNT, AUTOMATED 145 10^3/uL (150-450); RED BLOOD COUNT 2.81 10^6/uL (4.30-6.10); WHITE BLOOD COUNT 6.8 10^3/uL (4.0-10.0)
[2024-05-19 10:52] LABS: BLOOD UREA NITROGEN 35 MG/DL (9-23); CALCIUM LEVEL 9.2 MG/DL (8.3-10.6); CARBON DIOXIDE LEVEL 27 MMOL/L (20-31); CHLORIDE LEVEL 93 MMOL/L (98-107); CREATININE FOR GFR 0.82 MG/DL (0.70-1.30); GLOMERULAR FILTRATION RATE > 60.0 (>42); GLUCOSE, FASTING 233 MG/DL (74-106); IRON (FE) 47 UG/DL (65-175); POTASSIUM SERUM 4.8 MMOL/L (3.5-5.1); SODIUM LEVEL 133 MMOL/L (136-145)
== END ==
LOC: SKLAB5 09:01
PROVIDERS: ATTEND Internal Medicine
DX: D64.9 Anemia, unspecified (principal)